=== PATIENT | female | born 1995 | race Hispanic/Latino ===

== ENCOUNTER 2024-03-31 04:32 | Emergency (ER) | payer SELFPAY ==
--- OUTSIDE RECORDS SUMMARY | 2024-03-31 04:37 | XMS REPORT | Continuity of Care Document ---
Author Name Unknown Address [address] [facility] [address] [place] [id number] [facility] [address] [facility] [address] [place] [address] Care Team Providers Care Education Sales Consultant Name Role Phone Pcp, Patient Does Not Have A Primary Care Physic tylor JOSELINE BATISTA Attending Clinician BHAVYA Ying Attending Clinician Unavail able Bhavya Rizo Attending Clinician + Ultrasound, Tsering Attending Clinician UnavailMARCE Lau Attending Clinician SO Sandoval Attending Clinician Unavailable So Sotelo MD Attending Clinician [phone] Unknown, Attending Attending Clinician Unavailab Glynn Recinos Exp Cprit Obgyn Attending [place] Unavailable Unknown, Attending Attending Clinician Unavailab ilan MIRELES, Piper Onofre Attending Clinician [phone] PIPER PARMRA Attending Clinician Unavailab ilan Doctor Unassigned, Cable Attending Clinician U Joseline Solorio CNM Attending Clinician [phone] Visit, [place] Nurse Attending Clinician Mukesh ilBhavya Pastor Attending Clinician + FRANCK CESAR Attending Clinician Lawrence Cesar MD, Franck Sorensen Attending Clinician + Zaida Romero MD Attending Clinician [phone] TREVOR WRIGHT Attending Clinician Lawrence Novak MD, Trevor Attending Clinician + Tito FERRO, Malou Attending Clinician Unavailable DESTINEE VAUGHN Attending Clinician Unavailable Roderick BETHEA, Destinee Attending Clinician [phone] Lab, [facility] Attending Clinician Unavailable Nico Torres Attending Clinician [phone] NICO GARSIA Attending Clinician Unavailable FRANCK CESAR Admitting Clinician UnaFranck Wong MD Admitting Clinician + Payers Payer Name Policy Type Policy Number Effective Date Expirati on Date Source Problems Condition Name Condition Details Condition Category Status Onset Date Resolution Date Last Treatment Date Treating Clinician Comments Source Yeast infection Yeast infection Disease Active 02-10 00:00: 00 [facility] GBS (group B streptococ cus) UTI complicati ng GBS (group B streptococ cus) UTI complicati ng Disease Active 02-10 00:00: 00 [facility] Multiparit y Multiparit y Disease Active 02-06 00:00: 00 [facility] Supervisio n of high-risk Supervisio n of high-risk Disease Active 02-06 00:00: 00 [facility] Short interval between pregnancie s affecting , antepartum Short interval between pregnancie s affecting , antepartum Disease Active 02-06 00:00: 00 [facility] History of section History of section Disease Active 02-06 00:00: 00 [facility] History of placenta abruption History of placenta abruption Disease Active 02-06 00:00: 00 Overview: Formattin g of this note might be different from the original. With preg num 1 [facility] Need for HPV vaccinatio n Need for HPV vaccinatio n Disease Active -31 00:00: 00 [facility] Declines flu vaccine Declines flu vaccine Disease Active 2022-05 1- 00:00: 00 [facility] Anemia of mother in , antepartum Anemia of mother in , antepartum Disease Active 9-27 00:00: 00 [facility] Atypical squamous cells of undetermin ed significan ce (ASCUS) on Papanicola ou smear of cervix Atypical squamous cells of undetermin ed significan ce (ASCUS) on Papanicola ou smear of cervix Disease Active 11-10 00:00: 00 Overview: Formattin g of this note might be different from the original. 3 ASCUS +HPV11/30 colposcop y, rpt 6w pp05/2023 : ASCUS with HPV+. No EN noted on colposcop y bx. Needs repeat co-testin g in 12 months (05/2024). [facility] History of classical section History of classical section Disease Active 10-27 00:00: 00 Overview: Formattin g of this note might be different from the original. See records with baby num 1 [facility] Over weight Over weight Disease Active 10-24 00:00: 00 [facility] Obesity affecting in third trimester Obesity affecting in third trimester Disease Active 10-24 00:00: 00 [facility] Obesity (BMI 30-39.9) Obesity (BMI 30-39.9) Disease Active 10-24 00:00: 00 [facility] Obesity in Obesity in Disease Active 10-24 00:00: 00 [facility] No known active problems No known active problems Disease [facility] Status post delivery Status post delivery Disease Resolve d 05-29 00:00: 00 2023-06-20 00:00:00 2023-06-20 15:59:32 [facility] Anemia, Anemia, Disease Resolve d 05-29 00:00: 00 2023-06-20 00:00:00 2023-06-20 15:56:47 [facility] Supervisio n of high-risk Supervisio n of high-risk Disease Resolve d 2023-0 6-06 00:00: 00 2023-05-31 00:00:00 2023-05-31 21:35:32 [facility] Previous section Previous section Disease Resolve d 2022- 2-11 00:00: 00 2023-05-29 00:00:00 2023-05-29 14:40:42 [facility] 36 weeks gestation of 36 weeks gestation of Disease Resolve d 2022- 2-10 00:00: 00 2023-05-29 00:00:00 2023-05-29 14:40:28 [facility] Group B Streptococ cus urinary tract infection affecting in third trimester Group B Streptococ cus urinary tract infection affecting in third trimester Disease Resolve d 2022-05 1-21 00:00: 00 2023-05-29 00:00:00 2023-05-29 14:40:26 [facility] Anemia of mother in , antepartum Anemia of mother in , antepartum Disease Resolve d 9-27 00:00: 00 2023-05-29 00:00:00 2023-05-29 14:43:39 [facility] Multiparit y Multiparit y Disease Resolve d 6-06 00:00: 00 2023-05-29 00:00:00 2023-05-29 14:40:38 [facility] History of delivery History of delivery Disease Resolve d 6-06 00:00: 00 2023-05-29 00:00:00 2023-05-29 14:40:36 Overview: Formattin g of this note might be different from the original. 27 weeks records received [facility] History of placenta abruption History of placenta abruption Disease Resolve d 6-06 00:00: 00 2023-05-29 00:00:00 2023-05-29 14:40:27 [facility] Allergies, Adverse Reactions, Alerts Allergy Name Allergy Type Status Severity Reaction(s) Onset Date Inactive Date Treating Clinician Comments Source NO KNOWN ALLERGIE S Drug Class Active [facility] Social History Social Habit Start Date Stop Date Quantity Comments Source ASSERTION 2023-12-30 00:00:00 [facility] Exposure to SARS-CoV-2 (event) Not sure [facility] Alcoholic beverage intake 2024-03-06 00:00:00 2024-03-06 00:00:00 Lifetime non-drinker (finding) [facility] History of Social function 2024-02-07 00:00:00 2024-02-07 00:00:00 [facility] Alcohol intake 2023-06-21 00:00:00 2023-06-21 00:00:00 Lifetime non-drinker (finding) [facility] Tobacco use and exposure 2022-10-24 00:00:00 2022-10-24 00:00:00 Smokeless tobacco non-user [facility] Sex assigned at 1995 00:00:00 1995 00:00:00 [facility] Smoking Status Start Date Stop Date Source Never smoked tobacco [facility] Tobacco smoking consumption unknown [facility] Medications Ordered Medication Name Filled Medication Name Start Date Stop Date Current Medication? Ordering Clinician Indication Dosage Frequency Signature (SIG) Comments Components Source ampicillin 500 mg capsule 2023-05 00:00: 00 03-21 04:59 :00 Yes [id number] 500mg Take 1 capsule by mouth 4 (four) times daily for 10 days. [facility] ampicillin 500 mg capsule 02-10 00:00: 00 02-21 04:59 :00 Yes [id number] 500mg Take 1 capsule by mouth 4 (four) times daily for 10 days. [facility] PNV 67-iron ps-folate no.1-dha (VITAFOL ULTRA) 29 mg iron- 1 mg-200 mg Cap 02-06 00:00: 00 Yes [id number] 1{each} Take 1 Each by mouth in the morning. [facility] norethindro ne 0.35 mg tablet 06-13 00:00: 00 01-13 00:00 :00 No [id number] 1{tbl} Take 1 tablet by mouth in the morning. [facility] [id number] fum-folic () 27 mg iron- 1 mg folic tablet 2022-05 00:00: 00 06-20 00:00 :00 No [id number] 1{tbl} Take 1 tablet by mouth in the morning. [facility] docusate 100 mg capsule 2022-05 00:00: 00 06-20 00:00 :00 No [id number] 200mg Take 2 capsules by mouth once daily as needed for Constipati on. [facility] ferrous sulfate 325 mg (65 mg iron) tablet 2022-05 00:00: 00 06-20 00:00 :00 No [id number] 325mg Take 1 tablet by mouth in the morning. [facility] ibuprofen 600 mg tablet 2022-05 00:00: 00 06-20 00:00 :00 No [id number] 600mg Take 1 tablet by mouth every 6 (six) hours as needed (Pain). Take with food or milk. [facility] norethindro ne 0.35 mg tablet 2022-05 00:00: 00 06-20 00:00 :00 No [id number] .35mg Take 1 tablet by mouth in the morning. [facility] HYDROcodone -acetaminop hen 5-325 mg tablet 2022-05 00:00: 00 05-13 05:59 :00 No [id number] 1{tbl} Take 1 tablet by mouth every 6 (six) hours as needed (Pain scale above 4) for up to 10 days. Do not exceed 3 grams of acetaminop hen in 24 hours. Indication s: acute pain [facility] polyethylen e glycol 3350 powder 17 g 2022-05 15:00: 00 Yes 17g 17 g, Oral, DAILY, First dose on Sun05/01/23 at 0900, Until Discontinu ed, Routine [facility] simethicone (GAS RELIEF (SIMETHICON E)) chewable tablet 160 mg 2022-05 15:00: 00 Yes 160mg 160 mg, Oral, PC+HS, First dose (after last modificati on) on Sun05/01/23 at 0900, Until Discontinu ed, Routine [facility] docusate (COLACE) capsule 200 mg 2022-05 15:00: 00 Yes 200mg 200 mg, Oral, DAILY, First dose (after last modificati on) on Sun05/01/23 at 0900, Until Discontinu ed, Routine [facility] ferrous sulfate tablet 325 mg 2022-05 15:00: 00 Yes 325mg 325 mg, Oral, DAILY, First dose on Sun05/01/23 at 0900, Until Discontinu ed, Routine [facility] human papillomav vac,9-dirk(P F) (GARDASIL-9 ) syringe 0.5 mL 2022-05 08:53: 56 Yes .5mL 0.5 mL, Intramuscu lar, ONCE-PRIOR TO DISCHARGE, 1 dose, Starting on Sun05/01/23 at 0253, Until Discontinu ed, Routine, Give vaccine prior to discharge [facility] HYDROcodone -acetaminop hen (NORCO 5) 5-325 mg tablet 2 tablet 2022-05 21:32: 30 Yes 2{tbl} 2 tablet, Oral, Q6HPRN, Starting on Sun04/30/23 at 1532, Until Discontinu ed, Routine, Pain (scale 7-10), Alternate with Ibuprofen [facility] HYDROcodone -acetaminop hen (NORCO 5) 5-325 mg tablet 1 tablet 2022-05 21:32: 30 Yes 1{tbl} 1 tablet, Oral, Q6HPRN, Starting on Sun04/30/23 at 1532, Until Discontinu ed, Routine, Pain (scale 4-6), Alternate with Ibuprofen [facility] ibuprofen (IBU) tablet 600 mg 2022-05 21:32: 30 Yes 600mg 600 mg, Oral, Q6HPRN, Starting on Sun04/30/23 at 1532, Until Discontinu ed, Routine, Pain (scale 1-3) [facility] diphenhydrA MINE (BENADRYL) injection 25 mg 2022-05 21:32: 30 Yes 25mg 25 mg, Slow IV Push, Q6HPRN, Starting on Sun04/30/23 at 1532, Until Discontinu ed, Routine, Itching [facility] diphenhydrA MINE (BENADRYL) tablet 25 mg 2022-05 21:32: 30 Yes 25mg 25 mg, Oral, Q6HPRN, Starting on Sun04/30/23 at 1532, Until Discontinu ed, Routine, Sleep, Itching [facility] ondansetron (ZOFRAN (PF)) injection 4 mg 2022-05 21:32: 30 Yes 4mg 4 mg, Slow IV Push, Q8HPRN, Starting on Sun04/30/23 at 1532, Until Discontinu ed, Routine, Nausea and Vomiting (N/V) [facility] bisacodyL (DULCOLAX) suppository 10 mg 2022-05 21:32: 30 Yes 10mg 10 mg, Rectal, QDAILYPRN, Starting on Sun04/30/23 at 1532, Until Discontinu ed, Routine, Constipati on [facility] magnesium hydroxide (MILK OF MAGNESIA) 400 mg/5 mL suspension 30 mL 2022-05 21:32: 30 Yes 30mL 30 mL, Oral, QDAILYPRN, Starting on Sun04/30/23 at 1532, Until Discontinu ed, Routine, Constipati on [facility] lactated ringers IV infusion 1,000 mL 2022-05 21:32: 30 Yes 1000mL at 125 mL/hr, 1,000 mL, IV Infusion, PRN, 1 dose, Starting on Sun04/30/23 at 1532, Until Discontinu ed, Routine [facility] simethicone (GAS RELIEF (SIMETHICON E)) chewable tablet 160 mg 2022-05 21:32: 30 05-01 14:23 :01 No 160mg 160 mg, Oral, PC+HSPRN, Starting on Sun04/30/23 at 1532, Until Sun05/01/23 at 0823, Routine, Gas [facility] docusate (COLACE) capsule 200 mg 2022-05 21:32: 30 05-01 14:23 :01 No 200mg 200 mg, Oral, QDAILYPRN, Starting on Sun04/30/23 at 1532, Until Sun05/01/23 at 0823, Routine, Constipati on [facility] ketorolac (TORADOL) injection 30 mg 2022-05 19:49: 58 05-03 05:59 :00 No 30mg 30 mg, Slow IV Push, PRN, 1 dose, Starting on Sun04/30/23 at 1349, Until Sun05/02/23 at 2359, Routine, Pain (scale 4-6) [facility] lactated ringers IV infusion 1,000 mL 2022-05 17:15: 00 05-01 15:44 :00 No 1000mL at 125 mL/hr, 1,000 mL, IV Infusion, CONTINUOUS , Starting on Sun04/30/23 at 1115, Until Sun05/01/23 at 0944, DOMENICO [facility] ibuprofen (IBU) tablet 600 mg 2022-05 17:06: 46 Yes 600mg 600 mg, Oral, Q6HPRN, Starting on Sun04/30/23 at 1106, Until Discontinu ed, Routine, Pain (scale 1-3) [facility] oxytocin (PITOCIN) 30 units in NS 500 mL IV infusion 2022-05 17:06: 29 Yes 600mL/h 600 mL/hr, IV Infusion, PRN, For post delivery uterine atony., Starting on Sun04/30/[address] at 600 mL/hr for 1 hr then 150 mL/hr for 1 hr.
[facility] oxytocin (PITOCIN) 30 units in NS 500 mL IV infusion 2022-05 17:06: 29 Yes 300mL/h 300 mL/hr, IV Infusion, SEE-INSTRU CTIONS, Starting on Sun04/30/[address] at 300 mL/hr for 1 hr then 150 mL/hr for 1 hr. For post delivery uterotonic .
[facility] acetaminoph en (TYLENOL) tablet 650 mg 2022-05 06:15: 00 04-30 16:41 :00 No 650mg 650 mg, Oral, ONCE, 1 dose, On Sun04/30/23 at 0015, Routine [facility] sodium citrate-cit ananth acid (BICITRA) 500-334 mg/5 mL solution 30 mL 2022-05 06:01: 41 04-30 16:50 :00 No 30mL 30 mL, Oral, PRE-PROCED URE ONCE, 1 dose, Starting on Sun04/30/23 at 0001, Until Sun05/02/23 at 2359, Routine, Surgery/Pr ocedure [facility] ferrous sulfate 325 mg (65 mg iron) tablet 02-14 00:00: 00 05-02 00:00 :00 No [id number] 325mg Take 1 tablet by mouth in the morning and 1 tablet in the evening. [facility] ascorbic acid, vitamin C, 500 mg tablet 02-14 00:00: 00 05-02 00:00 :00 No [id number] 500mg Take 1 tablet by mouth in the morning and 1 tablet at noon and 1 tablet in the evening. [facility] ampicillin 500 mg capsule 10-27 00:00: 00 11-07 04:59 :00 No [id number] 500mg Take 1 capsule by mouth 4 (four) times daily for 10 days. [facility] PNV 67-iron ps-folate no.1-dha (VITAFOL ULTRA) 29 mg iron- 1 mg-200 mg Cap 10-24 00:00: 00 Yes [id number] 1{each} Take 1 Each by mouth in the morning. [facility] proMETHazin e 25 mg tablet 10-24 00:00: 00 05-02 00:00 :00 No [id number] 25mg Take 1 tablet by mouth every 6 (six) hours as needed for Nausea and Vomiting (N/V). [facility] PNV 67-iron ps-folate no.1-dha (VITAFOL ULTRA) 29 mg iron- 1 mg-200 mg Cap 6-06 00:00: 00 05-02 00:00 :00 No [id number] 1{each} Take 1 Each by mouth in the morning. [facility] No known medications No Un stephanie [facility] Immunizations Ordered Immunization Name Filled Immunization Name Date Status Comments Source HPV9 2023-12-12 00:00:00 Completed HPV9 2023-06-20 00:00:00 Completed TDAP 2023-02-27 00:00:00 Completed [facility] TDAP Unknown Completed [facility] HPV9 Unknown Completed [facility] TDAP Unknown Completed [facility] HPV9 Unknown Completed [facility] TDAP Unknown Completed [facility] HPV9 Unknown Completed [facility] TDAP Unknown Completed [facility] HPV9 Unknown Completed [facility] TDAP Unknown Completed [facility] TDAP Unknown Completed [facility] TDAP Unknown Completed [facility] TDAP Unknown Completed [facility] TDAP Unknown Completed [facility] TDAP Unknown Completed [facility] TDAP Unknown Completed [facility] TDAP Unknown Completed [facility] TDAP Unknown Completed [facility] TDAP Unknown Completed [facility] TDAP Unknown Completed [facility] TDAP Unknown Completed [facility] HPV9 Unknown Completed [facility] TDAP Unknown Completed [facility] HPV9 Unknown Completed [facility] TDAP Unknown Completed [facility] HPV9 Unknown Completed [facility] TDAP Unknown Completed [facility] HPV9 Unknown Completed [facility] TDAP Unknown Completed [facility] HPV9 Unknown Completed [facility] TDAP Unknown Completed [facility] HPV9 Unknown Completed [facility] TDAP Unknown Completed [facility] HPV9 Unknown Completed [facility] Vital Signs Vital Name Observation Time Observation Value Comments S ource Systolic blood pressure 2024-03-06 14:17:00 106 mm[Hg] [facility] Diastolic blood pressure 2024-03-06 14:17:00 56 mm[Hg] [facility] Heart rate 2024-03-06 14:17:00 70 /min Un[facility] Body temperature 2024-03-06 14:17:00 36.67 Natalie [facility] Respiratory rate 2024-03-06 14:17:00 18 /min [facility] Body height 2024-03-06 14:17:00 139.7 cm [facility] Body weight 2024-03-06 14:17:00 59.535 kg [facility] BMI 2024-03-06 14:17:00 30.51 kg/m2 [facility] Systolic blood pressure 2024-02-07 14:16:00 92 mm[Hg] [facility] Diastolic blood pressure 2024-02-07 14:16:00 54 mm[Hg] [facility] Heart rate 2024-02-07 14:16:00 76 /min Un[facility] Body temperature 2024-02-07 14:16:00 36.67 Natalie [facility] Respiratory rate 2024-02-07 14:16:00 18 /min [facility] Body height 2024-02-07 14:16:00 139.7 cm [facility] Body weight 2024-02-07 14:16:00 60.918 kg [facility] BMI 2024-02-07 14:16:00 31.21 kg/m2 [facility] Systolic blood pressure 2024-01-14 16:11:00 104 mm[Hg] [facility] Diastolic blood pressure 2024-01-14 16:11:00 69 mm[Hg] [facility] Heart rate 2024-01-14 16:11:00 62 /min Un[facility] Body temperature 2024-01-14 16:11:00 37.22 Natalie [facility] Respiratory rate 2024-01-14 16:11:00 18 /min [facility] Body weight 2024-01-14 16:11:00 60.601 kg [facility] BMI 2024-01-14 16:11:00 31.05 kg/m2 [facility] Oxygen saturation in Arterial blood by Pulse oximetry 2024-01-14 16:11:00 98 /min [facility] Body temperature 2023-12-12 19:02:00 36.89 Natalie [facility] Systolic blood pressure 2023-06-21 22:19:00 108 mm[Hg] [facility] Diastolic blood pressure 2023-06-21 22:19:00 50 mm[Hg] [facility] Heart rate 2023-06-21 22:19:00 64 /min [facility] Body temperature 2023-06-21 22:19:00 36 Natalie [facility] Respiratory rate 2023-06-21 22:19:00 17 /min [facility] Body height 2023-06-21 22:19:00 139.7 cm [facility] Body weight 2023-06-21 22:19:00 65.908 kg [facility] BMI 2023-06-21 22:19:00 33.77 kg/m2 [facility] Systolic blood pressure 2023-06-20 21:34:00 90 mm[Hg] [facility] Diastolic blood pressure 2023-06-20 21:34:00 58 mm[Hg] [facility] Heart rate 2023-06-20 21:34:00 67 /min [facility] Body temperature 2023-06-20 21:34:00 36.28 Natalie [facility] Respiratory rate 2023-06-20 21:34:00 16 /min [facility] Body height 2023-06-20 21:34:00 139.7 cm [facility] Body weight 2023-06-20 21:34:00 65.726 kg [facility] BMI 2023-06-20 21:34:00 33.68 kg/m2 [facility] Systolic blood pressure 2023-05-29 20:20:00 76 mm[Hg] [facility] Diastolic blood pressure 2023-05-29 20:20:00 46 mm[Hg] [facility] Heart rate 2023-05-29 20:20:00 68 /min Un[facility] Body temperature 2023-05-29 20:20:00 36.22 Natalie [facility] Respiratory rate 2023-05-29 20:20:00 17 /min [facility] Body height 2023-05-29 20:20:00 139.7 cm [facility] Body weight 2023-05-29 20:20:00 65.862 kg [facility] BMI 2023-05-29 20:20:00 33.75 kg/m2 [facility] Systolic blood pressure 2023-05-07 21:07:00 110 mm[Hg] [facility] Diastolic blood pressure 2023-05-07 21:07:00 50 mm[Hg] [facility] Heart rate 2023-05-07 21:07:00 67 /min Un[facility] Body temperature 2023-05-07 21:07:00 36.39 Natalie [facility] Respiratory rate 2023-05-07 21:07:00 18 /min [facility] Body height 2023-05-07 21:07:00 139.7 cm [facility] Body weight 2023-05-07 21:07:00 69.128 kg [facility] BMI 2023-05-07 21:07:00 35.42 kg/m2 [facility] Systolic blood pressure 2023-05-02 14:43:00 99 mm[Hg] [facility] Diastolic blood pressure 2023-05-02 14:43:00 58 mm[Hg] [facility] Heart rate 2023-05-02 14:43:00 77 /min Unive [facility] Body temperature 2023-05-02 14:43:00 36.67 Natalie [facility] Respiratory rate 2023-05-02 14:43:00 17 /min [facility] Oxygen saturation in Arterial blood by Pulse oximetry 2023-05-02 14:43:00 99 /min [facility] Body height 2023-04-30 05:30:00 139.7 cm [facility] Body weight 2023-04-30 05:30:00 76.567 kg [facility] BMI 2023-04-30 05:30:00 39.23 kg/m2 [facility] Systolic blood pressure 2023-04-30 14:53:00 98 mm[Hg] [facility] Diastolic blood pressure 2023-04-30 14:53:00 53 mm[Hg] [facility] Heart rate 2023-04-30 14:53:00 89 /min [facility] Oxygen saturation in Arterial blood by Pulse oximetry 2023-04-30 14:53:00 99 /min [facility] Respiratory rate 2023-04-30 14:00:00 18 /min [facility] Body temperature 2023-04-30 12:35:00 36.61 Natalie [facility] Body height 2023-04-30 05:30:00 139.7 cm [facility] Body weight 2023-04-30 05:30:00 76.567 kg [facility] BMI 2023-04-30 05:30:00 39.23 kg/m2 [facility] Systolic blood pressure 2023-04-17 14:52:00 97 mm[Hg] [facility] Diastolic blood pressure 2023-04-17 14:52:00 47 mm[Hg] [facility] Heart rate 2023-04-17 14:52:00 80 /min Unive [facility] Body temperature 2023-04-17 14:52:00 36.39 Natalie [facility] Respiratory rate 2023-04-17 14:52:00 18 /min [facility] Body height 2023-04-17 14:52:00 139.7 cm Univ [facility] Body weight 2023-04-17 14:52:00 75.524 kg [facility] BMI 2023-04-17 14:52:00 38.70 kg/m2 [facility] Systolic blood pressure 2023-04-10 13:47:00 95 mm[Hg] [facility] Diastolic blood pressure 2023-04-10 13:47:00 54 mm[Hg] [facility] Heart rate 2023-04-10 13:47:00 86 /[facility] 2023-04-10 13:47:00 36.22 Natalie [facility] Respiratory rate 2023-04-10 13:47:00 18 /min [facility] Body height 2023-04-10 13:47:00 139.7 cm [facility] 2023-04-10 13:47:00 72.938 kg [facility] BMI 2023-04-10 13:47:00 37.37 kg/m2 [facility] Systolic blood pressure 2023-03-28 14:01:00 94 mm[Hg] [facility] Diastolic blood pressure 2023-03-28 14:01:00 50 mm[Hg] [facility] Heart rate 2023-03-28 14:01:00 89 /min [facility] Body temperature 2023-03-28 14:01:00 36.5 Natalie [facility] Respiratory rate 2023-03-28 14:01:00 18 /min [facility] Body height 2023-03-28 14:01:00 139.7 cm [facility] 2023-03-28 14:01:00 71.016 kg [facility] BMI 2023-03-28 14:01:00 36.39 kg/m2 [facility] Systolic blood pressure 2023-03-14 13:16:00 103 mm[Hg] [facility] Diastolic blood pressure 2023-03-14 13:16:00 64 mm[Hg] [facility] Heart rate 2023-03-14 13:16:00 82 /min [facility] Body temperature 2023-03-14 13:16:00 36.33 Natalie [facility] Respiratory rate 2023-03-14 13:16:00 18 /min [facility] Body height 2023-03-14 13:16:00 139.7 cm [facility] 2023-03-14 13:16:00 69.31 kg [facility] BMI 2023-03-14 13:16:00 35.51 kg/m2 [facility] Systolic blood pressure 2023-02-27 13:15:00 95 mm[Hg] [facility] Diastolic blood pressure 2023-02-27 13:15:00 42 mm[Hg] [facility] Heart rate 2023-02-27 13:15:00 75 /min [facility] Body temperature 2023-02-27 13:15:00 36.94 Natalie [facility] Respiratory rate 2023-02-27 13:15:00 16 /min [facility] Body height 2023-02-27 13:15:00 139.7 cm [facility] Body weight 2023-02-27 13:15:00 68.992 kg [facility] BMI 2023-02-27 13:15:00 35.35 kg/m2 [facility] Systolic blood pressure 2023-02-13 13:48:00 90 mm[Hg] Manual BP [facility] Diastolic blood pressure 2023-02-13 13:48:00 40 mm[Hg] Manual BP [facility] Heart rate 2023-02-13 13:24:00 68 /min [facility] Body temperature 2023-02-13 13:24:00 36.56 Natalie [facility] Respiratory rate 2023-02-13 13:24:00 18 /min [facility] Body height 2023-02-13 13:24:00 139.7 cm [facility] Body weight 2023-02-13 13:24:00 65.862 kg [facility] BMI 2023-02-13 13:24:00 33.75 kg/m2 [facility] Systolic blood pressure 2023-01-21 01:07:00 100 mm[Hg] [facility] Diastolic blood pressure 2023-01-21 01:07:00 47 mm[Hg] [facility] Heart rate 2023-01-21 01:07:00 79 /min [facility] Body temperature 2023-01-21 01:07:00 37.61 Natalie [facility] Respiratory rate 2023-01-21 01:07:00 18 /min [facility] Body height 2023-01-21 01:07:00 139.7 cm [facility] Body weight 2023-01-21 01:07:00 64.275 kg [facility] BMI 2023-01-21 01:07:00 32.93 kg/m2 [facility] Oxygen saturation in Arterial blood by Pulse oximetry 2023-01-21 01:07:00 100 /min [facility] Systolic blood pressure 2023-01-16 13:09:00 102 mm[Hg] [facility] Diastolic blood pressure 2023-01-16 13:09:00 51 mm[Hg] [facility] Heart rate 2023-01-16 13:09:00 68 /min [facility] Body temperature 2023-01-16 13:09:00 36 Natalie [facility] Respiratory rate 2023-01-16 13:09:00 18 /min [facility] Body height 2023-01-16 13:09:00 139.7 cm [facility] Body weight 2023-01-16 13:09:00 61.598 kg [facility] BMI 2023-01-16 13:09:00 31.56 kg/m2 [facility] Systolic blood pressure 2022-12-15 15:51:00 112 mm[Hg] [facility] Diastolic blood pressure 2022-12-15 15:51:00 57 mm[Hg] [facility] Heart rate 2022-12-15 15:51:00 72 /min [facility] Body temperature 2022-12-15 15:51:00 36 Natalie [facility] Respiratory rate 2022-12-15 15:51:00 18 /min [facility] Body height 2022-12-15 15:51:00 139.7 cm [facility] Body weight 2022-12-15 15:51:00 57.063 kg [facility] BMI 2022-12-15 15:51:00 29.24 kg/m2 [facility] Systolic blood pressure 2022-11-30 16:29:00 109 mm[Hg] [facility] Diastolic blood pressure 2022-11-30 16:29:00 59 mm[Hg] [facility] Heart rate 2022-11-30 16:29:00 84 /min [facility] Body temperature 2022-11-30 16:29:00 36.5 Natalie [facility] Respiratory rate 2022-11-30 16:29:00 18 /min [facility] Body height 2022-11-30 16:29:00 139.7 cm [facility] Body weight 2022-11-30 16:29:00 56.501 kg [facility] BMI 2022-11-30 16:29:00 28.95 kg/m2 [facility] Systolic blood pressure 2022-11-17 17:52:00 100 mm[Hg] [facility] Diastolic blood pressure 2022-11-17 17:52:00 49 mm[Hg] [facility] Heart rate 2022-11-17 17:52:00 71 /min [facility] Body temperature 2022-11-17 17:52:00 36.72 Natalie [facility] Respiratory rate 2022-11-17 17:52:00 18 /min [facility] Body height 2022-11-17 17:52:00 139.7 cm [facility] Body weight 2022-11-17 17:52:00 56.382 kg [facility] BMI 2022-11-17 17:52:00 28.89 kg/m2 [facility] Systolic blood pressure 2022-10-24 18:43:00 93 mm[Hg] [facility] Diastolic blood pressure 2022-10-24 18:43:00 55 mm[Hg] [facility] Heart rate 2022-10-24 18:43:00 60 /min [facility] Body temperature 2022-10-24 18:43:00 36.28 Natalie [facility] Respiratory rate 2022-10-24 18:43:00 16 /min [facility] Body height 2022-10-24 18:43:00 139.7 cm [facility] Body weight 2022-10-24 18:43:00 56.564 kg [facility] BMI 2022-10-24 18:43:00 28.98 kg/m2 [facility] Body temperature 2020-05-25 18:29:00 36.56 Natalie [facility] Respiratory rate 2020-05-25 18:29:00 16 /min [facility] Body weight 2020-05-25 18:29:00 72.576 kg [facility] Oxygen saturation in Arterial blood by Pulse oximetry 2020-05-25 18:29:00 98 /min [facility] Systolic blood pressure 2020-05-25 18:29:00 110 mm[Hg] [facility] Diastolic blood pressure 2020-05-25 18:29:00 60 mm[Hg] [facility] Heart rate 2020-05-25 18:29:00 77 /min [facility] Procedures Procedure Date / Time Performed Performing Clinician Source POCT URINALYSIS 2024-03-06 14:18:00 Bhavya Santos [facility] SECOND AND THIRD TRIMESTER ULTRASOUND 2024-02-07 20:29:00 Bhavya Santos [facility] POCT TEST 2024-02-07 14:20:00 Hector Santos [facility] POCT URINALYSIS W/O SPECIFIC GRAVITY 2024-02-07 14:20:00 Bhavya Santos [facility] POCT TEST 2024-01-14 16:10:00 [facility] (HPV 9V) VACCINE 2023-12-12 19:01:20 Bhavya Santos [facility] POCT TEST 2023-06-21 22:20:00 Rashida Parmar [facility] DISCLOSURE AND CONSENT, MEDICAL AND SURGICAL PROCEDURES 2023-06-21 06:01:00 Doctor Unassigned, Cable [facility] GARDASIL 9 (HPV 9V) VACCINE 2023-06-20 21:49:14 Bhavya Santos [facility] CBC WITH DIFF 2023-05-01 10:38:00 Julia Montanez [facility] CBC WITH DIFF 2023-05-01 10:38:00 Julia Montanez [facility] VENOUS CORD GAS 2023-04-30 18:16:00 Sorathia [facility] VENOUS CORD GAS 2023-04-30 18:16:00 Sorathia [facility] SECTION 2023-04-30 16:54:00 Zaida Romero [facility] RESPIRATORY PANEL BY PCR 2023-04-30 15:48:00 Ruth Montanez [facility] RESPIRATORY PANEL BY PCR 2023-04-30 15:48:00 [facility] COVID-19 (ID NOW RAPID TESTING) 2023-04-30 13:59:00 Lisseth Julia [facility] LAB ONLY COVID INTERPRETATION 2023-04-30 13:59:00 Lisseth [facility] COVID-19 (ID NOW RAPID TESTING) 2023-04-30 13:59:00 Lisseth Julia [facility] LAB ONLY COVID INTERPRETATION 2023-04-30 13:59:00 Lisseth Julia [facility] CBC WITH DIFF 2023-04-30 06:54:00 [facility] ANTIGEN 2023-04-30 06:54:00 Celio [facility] HCV ANTIBODY 2023-04-30 06:54:00 Susan Bojorquez [facility] HBC ANTIBODY (IGM & IGG) 2023-04-30 06:54:00 Susan Bojorquez [facility] HB ABO GROUPING 2023-04-30 06:54:00 Celio [facility] HIV 1/2 AG-AB WITH REFLEX 2023-04-30 06:54:00 Hakanathfloresita [facility] SYPHILIS IGG/IGM 2023-04-30 06:54:00 Sorathia, [facility] CBC WITH DIFF 2023-04-30 06:54:00 [facility] HEPATITIS [facility] SURFACE ANTIGEN 2023-04-30 06:54:00 Celio [facility] HCV ANTIBODY 2023-04-30 06:54:00 Susan Bojorquez [facility] HBC ANTIBODY (IGM & IGG) 2023-04-30 06:54:00 Susan Bojorquez [facility] HB ABO GROUPING 2023-04-30 06:54:00 Celio [facility] HIV 1/2 AG-AB WITH REFLEX 2023-04-30 06:54:00 Celio [facility] SYPHILIS IGG/IGM 2023-04-30 06:54:00 Celio [facility] POCT URINALYSIS 2023-04-17 14:54:00 Bhavya Santos [facility] POCT URINALYSIS 2023-04-10 13:49:00 Bhavya Santos [facility] SECOND AND THIRD TRIMESTER ULTRASOUND 2023-04-03 15:09:00 Bhavya Santos [facility] POCT URINALYSIS 2023-03-14 13:18:00 Bhavya Santos [facility] TDAP VACCINE, >11 YRS, IM 2023-02-27 13:24:04 Bhavya Santos [facility] POCT URINALYSIS 2023-02-27 00:00:00 Bhavya Santos [facility] GLUCOSE 1 HOUR POST PRANDIAL 2023-02-13 14:22:00 Bhavya Santos [facility] CBC WITH DIFF 2023-02-13 14:22:00 Bhavya Santos [facility] POCT URINALYSIS 2023-02-13 13:25:00 Bhavya Santos [facility] ASSIGNMENT OF BENEFITS 2023-01-21 01:34:13 Docto r Unassigned, Cable [facility] COVID-19 (ID NOW RAPID TESTING) 2023-01-21 01:24:00 Destinee Vaughn [facility] CONSENT/REFUSAL FOR DIAGNOSIS AND TREATMENT 2023-01-21 00:56:56 Doctor Unassigned, Cable [facility] POCT URINALYSIS 2023-01-16 13:13:00 Bhavya Santos [facility] SECOND AND THIRD TRIMESTER ULTRASOUND 2023-01-02 19:52:00 Bhavya Santos [facility] SECOND AND THIRD TRIMESTER ULTRASOUND 2022-12-15 15:52:00 Bhavya Santos [facility] DISCLOSURE AND CONSENT, MEDICAL AND SURGICAL PROCEDURES 2022-11-30 05:01:00 Doctor Unassigned, Cable [facility] POCT URINALYSIS 2022-11-17 17:53:00 Bhavya Santos [facility] POCT URINALYSIS W/O SPECIFIC GRAVITY 2022-10-24 21:13:00 Bhavya Santos [facility] POCT TEST 2022-10-24 21:12:00 Hector Santos [facility] CBC WITH DIFF 2022-10-24 19:59:00 Bhavya Santos [facility] HEPATITIS B SURFACE ANTIGEN 2022-10-24 19:59:00 Bhavya Santos [facility] HB ABO GROUPING 2022-10-24 19:59:00 Bhavya Santos [facility] HIV 1/2 AG-AB WITH REFLEX 2022-10-24 19:59:00 Bhavya Santos [facility] PAP SMEAR-LIQUID BASED-CP 2022-10-24 19:59:00 Bhavya Santos [facility] SYPHILIS IGG/IGM 2022-10-24 19:59:00 Jm Santos [facility] CONSENT/REFUSAL FOR DIAGNOSIS AND TREATMENT 2022-10-24 18:06:10 Doctor Unassigned, Cable [facility] ASSIGNMENT OF BENEFITS 2022-10-24 18:05:52 Docto r Unassigned, Cable [facility] Encounters Start Date/Time End Date/Time Encounter Type Admission Type Attending Clinicians Care Facility Care Department Encounter ID Source 2024-03-10 00:00:00 2024-03-11 08:08:52 Telephone Bhavya Santos DIRECTOR OF COUNSELING [facility] & CHILD [facility] 1.2.840.114 350.1.13.10 4.2.7.2.686 [id number] [facility] 2024-03-06 09:15:00 2024-03-06 11:23:45 Outpatient R BHAVYA SANTOS [facility] [id number] [facility] 2024-03-06 09:15:00 2024-03-06 11:23:45 Routine Visit Bhavya Santos DIRECTOR OF COUNSELING [facility] CHILD [facility] 1.2840.114 350.1.13.10 4.2.7.2.686 [id number] [facility] 2024-02-12 00:00:00 2024-02-12 08:16:03 Abstract Bhavya Santos [facility] DIRECTOR OF COUNSELING [facility] 1.2.840.114 350.1.13.10 4.2.7.2.686 [id number] [facility] 2024-02-11 00:00:00 2024-02-11 10:47:03 Telephone Bhavya Santos NCLOIVIA DIRECTOR OF COUNSELING [facility] 1.2.840.114 350.1.13.10 4.2.7.2.686 [id number] [facility] 2024-02-07 15:00:00 2024-02-07 16:10:29 Hotel Concierge Visit Ultrasound, Glynn-Bhavya Oleary [facility] DIRECTOR OF COUNSELING [facility] & CHILD [facility] 1.2.840.114 350.1.13.10 4.2.7.2.686 [id number] [facility] 2024-02-07 09:00:00 2024-02-07 11:11:02 Outpatient R BHAVYA SANTOS [facility] [id number] [facility] 2024-02-07 09:00:00 2024-02-07 11:11:02 Initial Visit Bhavya Santos [facility] DIRECTOR OF COUNSELING [facility] & CHILD [facility] ..840.114 350.1.13.10 4.2.7.2.686 [id number] [facility] 2024-01-28 10:00:00 2024-01-28 10:00:00 Outpatient R MARCE RODAS [facility] [id number] [facility] 2024-01-14 10:20:00 2024-01-14 11:21:17 Outpatient R SO SOTELO [facility] [id number] [facility] 2024-01-14 10:20:00 2024-01-14 11:21:17 Urgent Care So Sotelo Unknown, Attending [facility] 1.840.114 350.1.13.10 4.2.7.2.686 [id number] [facility] 2023-12-12 14:00:00 2023-12-12 14:15:00 Nurse Visit Nurse, Glynn Rmchp Exp Cprit Obgyn Unknown, Attending [facility] DIRECTOR OF COUNSELING [facility] & CHILD [facility] ..840.114 350.1.13.10 4.2.7.2.686 [id number] [facility] 2023-12-12 14:00:00 2023-12-12 14:11:48 Outpatient R BHAVYA SANTOS [facility] [id number] [facility] 2023-09-18 13:15:00 2023-09-18 13:15:00 Outpatient R [facility] [id number] [facility] 2023-09-11 13:30:00 2023-09-11 13:30:00 Outpatient R JOSELINE BATISTA [facility] [id number] [facility] 2023-08-24 11:00:00 2023-08-24 11:00:00 Outpatient R BHAVYA SANTOS [facility] [id number] [facility] 2023-08-22 13:30:00 2023-08-22 13:30:00 Outpatient R JOSELINE BATISTA [facility] [id number] [facility] 2023-07-27 08:30:00 2023-07-27 08:30:00 Outpatient R [facility] [id number] [facility] 2023-07-23 08:30:00 2023-07-23 08:30:00 Outpatient R JOSELINE BATISTA [facility] [id number] [facility] 2023-07-09 00:00:00 2023-07-09 00:00:00 Telephone Piper Parmar [facility] DIRECTOR OF COUNSELING [facility] [place] [facility] 1..840.114 350.1.13.10 4.2.7.2.686 [id number] [facility] 2023-07-05 00:00:00 2023-07-05 00:00:00 Telephone Piper Parmar [facility] DIRECTOR OF COUNSELING [facility] & CHILD [facility] ..840.114 350.1.13.10 4.2.7.2.686 [id number] [facility] 2023-06-21 16:00:00 2023-06-21 17:49:27 Outpatient R PIPER PARMAR [facility] [id number] [facility] 2023-06-21 16:00:00 2023-06-21 16:45:00 Office Visit Piper Parmar [facility] DIRECTOR OF COUNSELING [facility] & CHILD [facility] 1..840.114 350.1.13.10 4.2.7.2.686 [id number] [facility] 2023-06-21 00:00:00 2023-06-21 00:00:00 Orders Only Doctor Unassigned, Cable [facility] 1..114 350.1.13.10 4.2.7.2.686 [id number] [facility] 2023-06-20 15:30:00 2023-06-20 16:00:20 Outpatient R JOSELINE BATISTA [facility] [id number] [facility] 2023-06-20 15:30:00 2023-06-20 16:00:20 Office Visit Joseline Batista [facility] DIRECTOR OF COUNSELING [facility] & CHILD [facility] 1..114 350.1.13.10 4.2.7.2.686 [id number] [facility] 2023-06-20 14:15:00 2023-06-20 14:15:00 [id number] 2023-05-29 14:15:00 2023-05-29 14:57:26 Outpatient R JOSELINE BATISTA [facility] [id number] [facility] 2023-05-29 14:15:00 2023-05-29 14:57:26 Routine Visit Joseline Batista [facility] DIRECTOR OF COUNSELING [facility] & CHILD [facility] ..114 350.1.13.10 4.2.7.2.686 [id number] [facility] 2023-05-07 15:00:00 2023-05-07 15:20:27 Nurse Visit Visit, Glynn-Rmchp Nurse Bhavya Santos [facility] DIRECTOR OF COUNSELING [facility] & CHILD [facility] 1.840.114 350.1.13.10 4.2.7.2.686 [id number] [facility] 2023-05-07 15:00:00 2023-05-07 15:20:27 Outpatient R BHAVYA SANTOS [facility] [id number] [facility] 2023-04-29 23:13:00 2023-05-02 15:35:00 Inpatient P FRANCK CESAR [facility] JULIANNE [id number] [facility] 2023-04-29 23:13:00 2023-05-02 15:35:00 Hospital Encounter Franck Cesar Ikuvbarry [facility] 1.840.114 350.1.13.10 4.2.7.2.686 [id number] [facility] 2023-04-30 07:30:00 2023-04-30 09:16:00 Surgery Zaida Romero [facility] 1.840.114 350.1.13.10 4.2.7.2.686 [id number] [facility] 2023-04-17 08:45:00 2023-04-17 09:57:52 Outpatient R BHAVYA SANTOS [facility] [id number] [facility] 2023-04-17 08:45:00 2023-04-17 09:57:52 Routine Visit Bhavya Santos [facility] DIRECTOR OF COUNSELING [facility] [place] [facility] 1.840.114 350.1.13.10 4.2.7.2.686 [id number] [facility] 2023-04-10 07:45:00 2023-04-10 08:15:23 Outpatient R JOSELINE BATISTA [facility] [id number] [facility] 2023-04-10 07:45:00 2023-04-10 08:15:23 Routine Visit Joseline Batista [facility] DIRECTOR OF COUNSELING [facility] [place] [facility] 1.840.114 350.1.13.10 4.2.7.2.686 [id number] [facility] 2023-04-04 00:00:00 2023-04-04 00:00:00 Abstract Bhavya Santos [facility] DIRECTOR OF COUNSELING [facility] & CHILD [facility] 1..840.114 350.1.13.10 4.2.7.2.686 [id number] [facility] 2023-04-03 08:30:00 2023-04-03 10:10:25 Outpatient P TREVOR JOHNSTON [facility] [id number] [facility] 2023-04-03 08:30:00 2023-04-03 10:10:25 Hotel Concierge Visit Ultrasound, [facility] Trevor Johnston [facility] DIRECTOR OF COUNSELING [facility] & CHILD [facility] 1.840.114 350.1.13.10 4.2.7.2.686 [id number] [facility] 2023-03-28 07:45:00 2023-03-28 08:28:30 Outpatient R BHAVYA SANTOS [facility] [id number] [facility] 2023-03-28 07:45:00 2023-03-28 08:28:30 Routine Visit Bhavya Santos [facility] DIRECTOR OF COUNSELING [facility] & CHILD [facility] .840.114 350.1.13.10 4.2.7.2.686 [id number] [facility] 2023-03-14 08:00:00 2023-03-14 08:43:35 Outpatient R BHAVYA SANTOS [facility] [id number] [facility] 2023-03-14 08:00:00 2023-03-14 08:43:35 Routine Visit Bhavya Santos [facility] DIRECTOR OF COUNSELING [facility] & CHILD [facility] 1..840.114 350.1.13.10 4.2.7.2.686 [id number] [facility] 2023-02-27 08:00:00 2023-02-27 08:34:38 Routine Visit Bhavya Santos [facility] DIRECTOR OF COUNSELING [facility] & CHILD [facility] 1.2840.114 350.1.13.10 4.2.7.2.686 [id number] [facility] 2023-02-27 08:00:00 2023-02-27 08:34:38 Outpatient R BHAVYA SANTOS [facility] [id number] [facility] 2023-02-14 00:00:00 2023-02-14 00:00:00 Telephone Bhavya Santos [facility] DIRECTOR OF COUNSELING [facility] & CHILD [facility] 1.2840.114 350.1.13.10 4.2.7.2.686 [id number] [facility] 2023-02-13 07:45:00 2023-02-13 09:04:05 Outpatient R BHAVYA SANTOS [facility] [id number] [facility] 2023-02-13 07:45:00 2023-02-13 09:04:05 Routine Visit Bhavya Santos [facility] DIRECTOR OF COUNSELING [facility] & CHILD [facility] 1.20.114 350.1.13.10 4.2.7.2.686 [id number] [facility] 2023-01-21 00:00:00 2023-01-21 00:00:00 Letter (Out) Malou Francis [facility] 1.2.114 350.1.13.10 4.2.7.2.686 [id number] [facility] 2023-01-20 20:08:00 2023-01-20 21:36:00 Emergency X DESTINEE VAUGHN [facility] ERT [id number] [facility] 2023-01-20 20:08:00 2023-01-20 21:36:00 Emergency Destinee Vaughn [facility] 1.2840.114 350.1.13.10 4.2.7.2.686 [id number] [facility] 2023-01-16 08:00:00 2023-01-16 08:27:09 Outpatient R BHAVYA SANTOS [facility] [id number] [facility] 2023-01-16 08:00:00 2023-01-16 08:27:09 Routine Visit Bhavya Santos [facility] DIRECTOR OF COUNSELING [facility] MATERNAL & CHILD [facility] 1.2840.114 350.1.13.10 4.2.7.2.686 [id number] [facility] 2023-01-04 00:00:00 2023-01-04 00:00:00 Abstract Bhavya Santos [facility] DIRECTOR OF COUNSELING [facility] MATERNAL & CHILD [facility] 1.2840.114 350.1.13.10 4.2.7.2.686 [id number] [facility] 2023-01-02 14:00:00 2023-01-02 14:50:49 Outpatient P TREVOR JOHNSTON [facility] [id number] [facility] 2023-01-02 14:00:00 2023-01-02 14:50:49 Hotel Concierge Visit Ultrasound, Ang-[facility] Trevor Johnston [facility] DIRECTOR OF COUNSELING [facility] MATERNAL & CHILD [facility] 1.2840.114 350.1.13.10 4.2.7.2.686 [id number] [facility] 2022-12-28 00:00:00 2022-12-28 00:00:00 Abstract Bhavya Santos [facility] DIRECTOR OF COUNSELING [facility] & CHILD [facility] 1.2.840.114 350.1.13.10 4.2.7.2.686 [id number] [facility] 2022-12-15 12:45:00 2022-12-15 12:45:00 Routine Visit Bhavya Santos [facility] DIRECTOR OF COUNSELING [facility] MATERNAL & CHILD [facility] 1.2.840.114 350.1.13.10 4.2.7.2.686 [id number] [facility] 2022-12-15 10:15:00 2022-12-15 10:44:52 Outpatient P BHAVYA SANTOS [facility] [id number] [facility] 2022-12-15 10:15:00 2022-12-15 10:44:52 Hotel Concierge Visit Ultrasound, [facility] Bhavya Santos [facility] DIRECTOR OF COUNSELING [facility] & CHILD [facility] 1.2.840.114 350.1.13.10 4.2.7.2.686 [id number] [facility] 2022-12-15 00:00:00 2022-12-15 00:00:00 Abstract Bhavya Santos [facility] DIRECTOR OF COUNSELING [facility] CHILD [facility] 1.2.840.114 350.1.13.10 4.2.7.2.686 [id number] [facility] 2022-12-15 00:00:00 2022-12-15 00:00:00 Telephone Bhavya Santos [facility] DIRECTOR OF COUNSELING [facility] & CHILD [facility] 1.2.840.114 350.1.13.10 4.2.7.2.686 [id number] [facility] 2022-11-30 10:30:00 2022-11-30 11:15:00 Office Visit Piper Parmar [facility] DIRECTOR OF COUNSELING [facility] MATERNAL & CHILD [facility] 1.2.840.114 350.1.13.10 4.2.7.2.686 [id number] [facility] 2022-11-30 10:30:00 2022-11-30 10:30:00 Outpatient R PIPER PARMAR [facility] [id number] [facility] 2022-11-30 00:00:00 2022-11-30 00:00:00 Orders Only Doctor Unassigned, Cable [facility] 1.2.840.114 350.1.13.10 4.2.7.2.686 [id number] [facility] 2022-11-20 00:00:00 2022-11-20 00:00:00 Abstract Bhavya Santos [facility] DIRECTOR OF COUNSELING [facility] & CHILD [facility] 1.2.840.114 350.1.13.10 4.2.7.2.686 [id number] [facility] 2022-11-17 12:45:00 2022-11-17 13:21:21 Routine Visit Bhavya Santos [facility] DIRECTOR OF COUNSELING [facility] & CHILD [facility] 1.2840.114 350.1.13.10 4.2.7.2.686 [id number] [facility] 2022-11-17 12:45:00 2022-11-17 13:21:21 Outpatient R BHAVYA SANTOS [facility] [id number] [facility] 2022-11-15 10:15:00 2022-11-15 10:15:00 Outpatient P [facility] [id number] [facility] 2022-11-14 00:00:00 2022-11-14 00:00:00 Telephone Bhavya Santos [facility] DIRECTOR OF COUNSELING [facility] & CHILD [facility] 1.2.840.114 350.1.13.10 4.2.7.2.686 [id number] [facility] 2022-11-10 00:00:00 2022-11-10 00:00:00 Telephone Yolanda Santossheeba Miranda [facility] DIRECTOR OF COUNSELING [facility] CHILD [facility] 1.2840.114 350.1.13.10 4.2.7.2.686 [id number] [facility] 2022-11-09 00:00:00 2022-11-09 00:00:00 Abstract Yolanda Santossheeba Miranda [facility] DIRECTOR OF COUNSELING [facility] CHILD [facility] 1.2840.114 350.1.13.10 4.2.7.2.686 [id number] [facility] 2022-11-08 12:45:00 2022-11-08 13:00:00 Hotel Concierge Visit Lab, Franck Quinnjimmie Bhavya Miranda [facility]N [facility] 1.2840.114 350.1.13.10 4.2.7.2.686 [id number] [facility] 2022-11-08 11:15:00 2022-11-08 12:11:11 Hotel Concierge Visit Ultrasound, Franck Grady [facility] DIRECTOR OF COUNSELING [facility] CHILD [facility] 1.2840.114 350.1.13.10 4.2.7.2.686 [id number] [facility] 2022-11-08 11:15:00 2022-11-08 12:11:11 Outpatient P FRANCK CESAR [facility] [id number] [facility] 2022-11-08 00:00:00 2022-11-08 00:00:00 Case Management Jerrodjimmie Bhavya Miranda [facility] 1.2.840.114 350.1.13.10 4.2.7.2.686 [id number] [facility] 2022-10-27 00:00:00 2022-10-27 00:00:00 Telephone Bhavya Santos [facility] DIRECTOR OF COUNSELING [facility] & CHILD [facility] 1.2.840.114 350.1.13.10 4.2.7.2.686 [id number] [facility] 2022-10-25 08:15:00 2022-10-25 08:19:46 Hotel Concierge Visit Lab, Glynn-[facility] Bhavya Santos [facility] DIRECTOR OF COUNSELING [facility] MATERNAL & CHILD [facility] 1.2840.114 350.1.13.10 4.2.7.2.686 [id number] [facility] 2022-10-25 08:15:00 2022-10-25 08:15:00 Outpatient R BHAVYA SANTOS [facility] [id number] [facility] 2022-10-24 13:45:00 2022-10-24 14:56:09 Outpatient R BHAVYA SANTOS [facility] [id number] [facility] 2022-10-24 13:45:00 2022-10-24 14:56:09 Initial Visit Bhavya Santos [facility] DIRECTOR OF COUNSELING [facility] & CHILD [facility] 1.2840.114 350.1.13.10 4.2.7.2.686 [id number] [facility] 2022-10-24 00:00:00 2022-10-24 00:00:00 Orders Only Doctor Unassigned, Cable [facility] 1.840.114 350.1.13.10 4.2.7.2.686 [id number] [facility] 2020-05-25 12:31:00 2020-05-25 13:44:00 Emergency Nico Garsia [facility] 1.2.840.114 350.1.13.10 4.2.7.2.686 [id number] [facility] 2020-05-25 12:31:00 2020-05-25 12:31:00 Emergency X NICO GARSIA [facility] ERT [id number] [facility] Results Test Description Test Time Test Comments Results Result Co mments Source [facility] Urinalysis w/o Specific [id number] 14:20:00* Test Item Value Reference Range Interpretation Comme nts POCT PH U (test code = 3254) 6 mg/dl 5-8 POCT U LEUK EST (test code = 3263) 2+ Negative - Negative POCT U NIT (test code = 3262) neg Negative - Negati ve POCT U PROT (test code = 3259) trace Negative - Negat tejas POCT U GLU (test code = 3256) neg Negative - Negati ve POCT U KETONE (test code = 3258) 1+ Negative - Neg ative POCT U BLD (test code = 3257) neg Negative - Negati ve [facility] [id number] 14:20:00* Test Item Value Reference Range Interpretation Comme nts POCT PREG (test code = 1605) Positive On board controls acceptable with C Line (test code = 3574) Yes POCT PREG LOT # (test code = 3575) POCT PREG TEST DATE ( test code = 3576) [facility] [id number] 16:10:00* Test Item Value Reference Range Interpretation Comme nts POCT PREG (test code = 1605) Positive On board controls acceptable with C Line (test code = 3574) Yes POCT PREG LOT # (test code = 3575) POCT PREG TEST DATE ( test code = 3576) [facility] [id number] 22:20:00* Test Item Value Reference Range Interpretation Comme nts POCT PREG (test code = 1605) Negative On board controls acceptable with C Line (test code = 3574) Yes POCT PREG LOT # (test code = 3575) POCT PREG TEST DATE ( test code = 3576) [facility] [id number] 22:20:00* Test Item Value Reference Range Interpretation Comme nts POCT PREG (test code = 1605) Negative On board controls acceptable with C Line (test code = 3574) Yes POCT PREG LOT # (test code = 3575) POCT PREG TEST DATE ( test code = 3576) [facility] I[facility]2023-04-30 22:39:16* Test Item Value Reference Range Interpretation Comme nts HBC (test code = 6343415356) Negative HBC Semi-Quantitative (test code = 6130968296) 3.38 [facility] (IGM & IGG)2023-04-30 22:39:16* Test Item Value Reference Range Interpretation Comme nts HBC (test code = 9084340705) Negative HBC Semi-Quantitative (test code = 9308395767) 3.38 [facility] [id number] 22:39:15* Test Item Value Reference Range Interpretation Comme nts HCV Ab (test code = 41070-2) Negative HCV Semi-Quantitative (test code = 11950-7) 0.01 [facility] [id number] 22:39:15* Test Item Value Reference Range Interpretation Comme nts HCV Ab (test code = 35569-1) Negative HCV Semi-Quantitative (test code = 11794-3) 0.01 [facility] Taylor[facility] Cord [id number] 18:36:32* Test Item Value Reference Range Interpretation Comme nts VENOUS BASE EXCESS, CORD (test code = 7962369372) -2.3 mEq/L VENOUS PH, CORD (test code = 0473999700) 7.34 7.25-7.45 VENOUS PC02, CORD (test code = 3603053552) 45 See_Comment [Automated messa ge] The system which generated this result transmitted reference range: 27 - 49 mmHg. The reference range was not used to interpret this result as normal/abnormal. VENOUS PO2, CORD (test code = 4329277013) 21 See_Comment [Automated me ssage] The system which generated this result transmitted reference range: 17 - 41 mmHg. The reference range was not used to interpret this result as normal/abnormal. VENOUS BICARBONATE, CORD (test code = 2651250107) 24 See_Comment [Automated messa ge] The system which generated this result transmitted reference range: 12 - 29 mEq/L. The reference range was not used to interpret this result as normal/abnormal. [facility] [id number] 18:36:32* Test Item Value Reference Range Interpretation Comme nts VENOUS BASE EXCESS, CORD (test code = 0811483629) -2.3 mEq/L VENOUS PH, CORD (test code = 9401252010) 7.34 7.25-7.45 VENOUS PC02, CORD (test code = 5933749066) 45 See_Comment [Automated messa ge] The system which generated this result transmitted reference range: 27 - 49 mmHg. The reference range was not used to interpret this result as normal/abnormal. VENOUS PO2, CORD (test code = 4870794906) 21 See_Comment [Automated me ssage] The system which generated this result transmitted reference range: 17 - 41 mmHg. The reference range was not used to interpret this result as normal/abnormal. VENOUS BICARBONATE, CORD (test code = 9948245876) 24 See_Comment [Automated messa ge] The system which generated this result transmitted reference range: 12 - 29 mEq/L. The reference range was not used to interpret this result as normal/abnormal. [facility] Taylor[facility] Cord [id number] 18:34:46* Test Item Value Reference Range Interpretation Comme nts BASE EXCESS, CORD (test code = 8152155338) -3.0 mEq/L QUES AC PH, CORD (BEAKER) (test code = 0641884248) 7.27 7.18-7.38 PC02, CORD (test code = 9912698313) 56 See_Comment [Automated messa ge] The system which generated this result transmitted reference range: 32 - 66 mmHg. The reference range was not used to interpret this result as normal/abnormal. PO2, CORD (test code = 4909249082) 19 See_Comment [Automated messa ge] The system which generated this result transmitted reference range: 10 - 30 mmHg. The reference range was not used to interpret this result as normal/abnormal. BICARBONATE, CORD (test code = 9886835965) 25 See_Comment [Automated messa ge] The system which generated this result transmitted reference range: 17 - 27 mEq/L. The reference range was not used to interpret this result as normal/abnormal. [facility] [id number] 18:34:46* Test Item Value Reference Range Interpretation Comme nts BASE EXCESS, CORD (test code = 4503607522) -3.0 mEq/L QUES AC PH, CORD (BEAKER) (test code = 6705412683) 7.27 7.18-7.38 PC02, CORD (test code = 9870492217) 56 See_Comment [Automated messa ge] The system which generated this result transmitted reference range: 32 - 66 mmHg. The reference range was not used to interpret this result as normal/abnormal. PO2, CORD (test code = 8285236506) 19 See_Comment [Automated messa ge] The system which generated this result transmitted reference range: 10 - 30 mmHg. The reference range was not used to interpret this result as normal/abnormal. BICARBONATE, CORD (test code = 2703315665) 25 See_Comment [Automated messa ge] The system which generated this result transmitted reference range: 17 - 27 mEq/L. The reference range was not used to interpret this result as normal/abnormal. [facility] ONLY - SYPHILIS IGG/[id number] 14:06:25* Test Item Value Reference Range Interpretation Comme nts Syphilis IgG/IgM (test code = 20723-2) Non-reactive Non-reactive PAT (test code = PAT) Non-reactive - No serologic evidence of T. pallidum infection. Cannot exclude incubating or early syphilis. Submit a second specimen in 2-4 weeks if syphilis is clinically suspected. Equivocal - Further testing to follow. Reactive - Further testing to follow. Lab Interpretation (test code = 85144-9) Normal [facility] ONLY - SYPHILIS IGG/[id number] 14:06:25* Test Item Value Reference Range Interpretation Comme nts Syphilis IgG/IgM (test code = 04313-1) Non-reactive Non-reactive PAT (test code = PAT) Non-reactive - No serologic evidence of T. pallidum infection. Cannot exclude incubating or early syphilis. Submit a second specimen in 2-4 weeks if syphilis is clinically suspected. Equivocal - Further testing to follow. Reactive - Further testing to follow. Lab Interpretation (test code = 35085-2) Normal [facility] Taylor[facility]atitis B Surface [id number] 11:50:37 * Test Item Value Reference Range Interpretation Comme nts HBsAg Semi-Quantitative (huey t code = 5195-3) 0.09 Negative [facility] B Surface [id number] 11:50:37 * Test Item Value Reference Range Interpretation Comme nts HBsAg Semi-Quantitative (huey t code = 5195-3) 0.09 [facility] [id number] 10:04:32* Test Item Value Reference Range Interpretation Comme nts HIV Semi-quantitative (test code = 12254-7) 0.13 Negative PAT (test code = PAT) Non-reactive for HIV-1 antigen and HIV-1/HIV-2 antibodies. ?No laboratory evidence of HIV infection. ?Repeat in 2-4 weeks if acute HIV infection is suspected. [facility] 1/2 AG-AB WITH [id number] 10:04:32* Test Item Value Reference Range Interpretation Comme nts HIV Semi-quantitative (test code = 64239-3) 0.13 Negative PAT (test code = PAT) Non-reactive for HIV-1 antigen and HIV-1/HIV-2 antibodies. ?No laboratory evidence of HIV infection. ?Repeat in 2-4 weeks if acute HIV infection is suspected. [facility] with [id number] 07:17:45* Test Item Value Reference Range Interpretation Comme nts WBC (test code = 6690-2) 12.19 See_Comment H [Automated messa ge] The system which generated this result transmitted reference range: 4.30 - 11.10 10*3/?L. The reference range was not used to interpret this result as normal/abnormal. RBC (test code = 789-8) 3.42 See_Comment L [Automated messa ge] The system which generated this result transmitted reference range: 3.93 - 5.25 10*6/?L. The reference range was not used to interpret this result as normal/abnormal. HGB (test code = 718-7) 8.4 g/dL 11.6-15.0 L HCT (test code = 4544-3) 26.3 % 35.7-45.2 L MCV (test code = 787-2) 76.9 fL 80.6-95.5 L MCH (test code = 785-6) 24.6 pg 25.9-32.8 L MCHC (test code = 786-4) 31.9 g/dL 31.6-35.1 RDW-SD (test code = 06426-0) 44.9 fL 39.0-49.9 RDW-CV (test code = 788-0) 16.0 % 12.0-15.5 H PLT (test code = 777-3) 296 See_Comment [Automated messa ge] The system which generated this result transmitted reference range: 166 - 358 10*3/?L. The reference range was not used to interpret this result as normal/abnormal. MPV (test code = 19063-4) 11.4 fL 9.5-12.9 NRBC/100 WBC (test code = 1651514340) 0.2 See_Comment [Automated [employer] ssage] The system which generated this result transmitted reference range: 0.0 - 10.0 /100 WBCs. The reference range was not used to interpret this result as normal/abnormal. NRBC x10^3 (test code = 1619212581) 0.02 See_Comment [Automated messa ge] The system which generated this result transmitted reference range: 10*3/?L. The reference range was not used to interpret this result as normal/abnormal. GRAN MAT (NEUT) % (test code = 770-8) 68.3 % IMM GRAN % (test code = 3448135910) 0.90 % LYMPH % (test code = 736-9) 19.8 % MONO % (test code = 5905-5) 8.1 % EOS % (test code = 713-8) 2.4 % BASO % (test code = 706-2) 0.5 % GRAN MAT x10^3(ANC) (test code = 9503665103) 8.33 10*3/uL 1.88-7.09 H IMM GRAN x10^3 (test code = 6457286084) 0.11 10*3/uL 0.00-0.06 H LYMPH x10^3 (test code = 731-0) 2.41 10*3/uL 1.32-3.29 MONO x10^3 (test code = 742-7) 0.99 10*3/uL 0.33-0.92 H EOS x10^3 (test code = 711-2) 0.29 10*3/uL 0.03-0.39 BASO x10^3 (test code = 704-7) 0.06 10*3/uL 0.01-0.07 Lab Interpretation (test code = 09037-0) Abnormal [facility] with Amsuwmcjdoqh5448-51-97 07:17:45* Test Item Value Reference Range Interpretation Comme nts WBC (test code = 6690-2) 12.19 See_Comment H [Automated messa ge] The system which generated this result transmitted reference range: 4.30 - 11.10 10*3/?L. The reference range was not used to interpret this result as normal/abnormal. RBC (test code = 789-8) 3.42 See_Comment L [Automated messa ge] The system which generated this result transmitted reference range: 3.93 - 5.25 10*6/?L. The reference range was not used to interpret this result as normal/abnormal. HGB (test code = 718-7) 8.4 g/dL 11.6-15.0 L HCT (test code = 4544-3) 26.3 % 35.7-45.2 L MCV (test code = 787-2) 76.9 fL 80.6-95.5 L MCH (test code = 785-6) 24.6 pg 25.9-32.8 L MCHC (test code = 786-4) 31.9 g/dL 31.6-35.1 RDW-SD (test code = 15699-4) 44.9 fL 39.0-49.9 RDW-CV (test code = 788-0) 16.0 % 12.0-15.5 H PLT (test code = 777-3) 296 See_Comment [Automated messa ge] The system which generated this result transmitted reference range: 166 - 358 10*3/?L. The reference range was not used to interpret this result as normal/abnormal. MPV (test code = 99898-0) 11.4 fL 9.5-12.9 NRBC/100 WBC (test code = 7427893298) 0.2 See_Comment [Automated me ssage] The system which generated this result transmitted reference range: 0.0 - 10.0 /100 WBCs. The reference range was not used to interpret this result as normal/abnormal. NRBC x10^3 (test code = 1759065783) 0.02 See_Comment [Automated messa ge] The system which generated this result transmitted reference range: 10*3/?L. The reference range was not used to interpret this result as normal/abnormal. GRAN MAT (NEUT) % (test code = 770-8) 68.3 % IMM GRAN % (test code = 1952615012) 0.90 % LYMPH % (test code = 736-9) 19.8 % MONO % (test code = 5905-5) 8.1 % EOS % (test code = 713-8) 2.4 % BASO % (test code = 706-2) 0.5 % GRAN MAT x10^3(ANC) (test code = 0128777622) 8.33 10*3/uL 1.88-7.09 H IMM GRAN x10^3 (test code = 2225991667) 0.11 10*3/uL 0.00-0.06 H LYMPH x10^3 (test code = 731-0) 2.41 10*3/uL 1.32-3.29 MONO x10^3 (test code = 742-7) 0.99 10*3/uL 0.33-0.92 H EOS x10^3 (test code = 711-2) 0.29 10*3/uL 0.03-0.39 BASO x10^3 (test code = 704-7) 0.06 10*3/uL 0.01-0.07 Lab Interpretation (test code = 66816-9) [facility] [id number] 07:06:00* Test Item Value Reference Range Interpretation Comme nts ABO & RH (test code = 20) A POSITIVE IAT (test code = 1185) Negative [facility] - ONCE Kcimatl2064-16-82 07:06:00* Test Item Value Reference Range Interpretation Comme nts ABO & RH (test code = 20) A POSITIVE IAT (test code = 1185) Negative [facility] URINALYSIS W SPECIFIC [id number] 14:54:00* Test Item Value Reference Range Interpretation Comme nts POCT U SP GRAV (test code = 3255) . 1.005-1.025 POCT PH U (test code = 3254) . 5-8 POCT U LEUK EST (test code = 3263) . Negative - N egative POCT U NIT (test code = 3262) . Negative - Negati ve POCT U PROT (test code = 3259) trace Negative - Negat tejas POCT U GLU (test code = 3256) neg Negative - Negati ve POCT U KETONE (test code = 3258) . Negative - Neg ative POCT U UROBILI (test code = 3260) . 0.2-1 POCT U BILI (test code = 3261) . Negative - Negat tejas POCT U BLD (test code = 3257) . Negative - Negati ve POCT U COLOR (test code = 3266) . POCT U APPEAR (test code = 3267) . [facility] URINALYSIS W SPECIFIC [id number] 14:54:00* Test Item Value Reference Range Interpretation Comme nts POCT U SP GRAV (test code = 3255) . 1.005-1.025 POCT PH U (test code = 3254) . 5-8 POCT U LEUK EST (test code = 3263) . Negative - N egative POCT U NIT (test code = 3262) . Negative - Negati ve POCT U PROT (test code = 3259) trace Negative - Negat tejas POCT U GLU (test code = 3256) neg Negative - Negati ve POCT U KETONE (test code = 3258) . Negative - Neg ative POCT U UROBILI (test code = 3260) . 0.2-1 POCT U BILI (test code = 3261) . Negative - Negat tejas POCT U BLD (test code = 3257) . Negative - Negati ve POCT U COLOR (test code = 3266) . POCT U APPEAR (test code = 3267) . [facility] URINALYSIS W SPECIFIC [id number] 14:54:00* Test Item Value Reference Range Interpretation Comme nts POCT U SP GRAV (test code = 3255) . 1.005-1.025 POCT PH U (test code = 3254) . 5-8 POCT U LEUK EST (test code = 3263) . Negative - N egative POCT U NIT (test code = 3262) . Negative - Negati ve POCT U PROT (test code = 3259) trace Negative - Negat tejas POCT U GLU (test code = 3256) neg Negative - Negati ve POCT U KETONE (test code = 3258) . Negative - Neg ative POCT U UROBILI (test code = 3260) . 0.2-1 POCT U BILI (test code = 3261) . Negative - Negat tejas POCT U BLD (test code = 3257) . Negative - Negati ve POCT U COLOR (test code = 3266) . POCT U APPEAR (test code = 3267) . [facility] URINALYSIS W SPECIFIC [id number] 14:54:00* Test Item Value Reference Range Interpretation Comme nts POCT U SP GRAV (test code = 3255) . 1.005-1.025 POCT PH U (test code = 3254) . 5-8 POCT U LEUK EST (test code = 3263) . Negative - N egative POCT U NIT (test code = 3262) . Negative - Negati ve POCT U PROT (test code = 3259) trace Negative - Negat tejas POCT U GLU (test code = 3256) neg Negative - Negati ve POCT U KETONE (test code = 3258) . Negative - Neg ative POCT U UROBILI (test code = 3260) . 0.2-1 POCT U BILI (test code = 3261) . Negative - Negat tejas POCT U BLD (test code = 3257) . Negative - Negati ve POCT U COLOR (test code = 3266) . POCT U APPEAR (test code = 3267) . [facility] URINALYSIS W SPECIFIC [id number] 13:50:00* Test Item Value Reference Range Interpretation Comme nts POCT U SP GRAV (test code = 3255) . 1.005-1.025 POCT PH U (test code = 3254) 6 mg/dl 5-8 POCT U LEUK EST (test code = 3263) 2+ Negative - Negative POCT U NIT (test code = 3262) neg Negative - Negati ve POCT U PROT (test code = 3259) trace Negative - Negat tejas POCT U GLU (test code = 3256) neg Negative - Negati ve POCT U KETONE (test code = 3258) neg Negative - Neg ative POCT U UROBILI (test code = 3260) . 0.2-1 POCT U BILI (test code = 3261) . Negative - Negat tejas POCT U BLD (test code = 3257) neg Negative - Negati ve POCT U COLOR (test code = 3266) . POCT U APPEAR (test code = 3267) . [facility] URINALYSIS W SPECIFIC [id number] 13:50:00* Test Item Value Reference Range Interpretation Comme nts POCT U SP GRAV (test code = 3255) . 1.005-1.025 POCT PH U (test code = 3254) 6 mg/dl 5-8 POCT U LEUK EST (test code = 3263) 2+ Negative - Negative POCT U NIT (test code = 3262) neg Negative - Negati ve POCT U PROT (test code = 3259) trace Negative - Negat tejas POCT U GLU (test code = 3256) neg Negative - Negati ve POCT U KETONE (test code = 3258) neg Negative - Neg ative POCT U UROBILI (test code = 3260) . 0.2-1 POCT U BILI (test code = 3261) . Negative - Negat tejas POCT U BLD (test code = 3257) neg Negative - Negati ve POCT U COLOR (test code = 3266) . POCT U APPEAR (test code = 3267) . [facility] URINALYSIS W SPECIFIC [id number] 13:50:00* Test Item Value Reference Range Interpretation Comme nts POCT U SP GRAV (test code = 3255) . 1.005-1.025 POCT PH U (test code = 3254) 6 mg/dl 5-8 POCT U LEUK EST (test code = 3263) 2+ Negative - Negative POCT U NIT (test code = 3262) neg Negative - Negati ve POCT U PROT (test code = 3259) trace Negative - Negat tejas POCT U GLU (test code = 3256) neg Negative - Negati ve POCT U KETONE (test code = 3258) neg Negative - Neg ative POCT U UROBILI (test code = 3260) . 0.2-1 POCT U BILI (test code = 3261) . Negative - Negat tejas POCT U BLD (test code = 3257) neg Negative - Negati ve POCT U COLOR (test code = 3266) . POCT U APPEAR (test code = 3267) . [facility] URINALYSIS W SPECIFIC [id number] 13:50:00* Test Item Value Reference Range Interpretation Comme nts POCT U SP GRAV (test code = 3255) . 1.005-1.025 POCT PH U (test code = 3254) 6 mg/dl 5-8 POCT U LEUK EST (test code = 3263) 2+ Negative - Negative POCT U NIT (test code = 3262) neg Negative - Negati ve POCT U PROT (test code = 3259) trace Negative - Negat tejas POCT U GLU (test code = 3256) neg Negative - Negati ve POCT U KETONE (test code = 3258) neg Negative - Neg ative POCT U UROBILI (test code = 3260) . 0.2-1 POCT U BILI (test code = 3261) . Negative - Negat tejas POCT U BLD (test code = 3257) neg Negative - Negati ve POCT U COLOR (test code = 3266) . POCT U APPEAR (test code = 3267) . [facility] URINALYSIS W SPECIFIC [id number] 13:50:00* Test Item Value Reference Range Interpretation Comme nts POCT U SP GRAV (test code = 3255) . 1.005-1.025 POCT PH U (test code = 3254) 6 mg/dl 5-8 POCT U LEUK EST (test code = 3263) 2+ Negative - Negative POCT U NIT (test code = 3262) neg Negative - Negati ve POCT U PROT (test code = 3259) trace Negative - Negat tejas POCT U GLU (test code = 3256) neg Negative - Negati ve POCT U KETONE (test code = 3258) neg Negative - Neg ative POCT U UROBILI (test code = 3260) . 0.2-1 POCT U BILI (test code = 3261) . Negative - Negat tejas POCT U BLD (test code = 3257) neg Negative - Negati ve POCT U COLOR (test code = 3266) . POCT U APPEAR (test code = 3267) . [facility] URINALYSIS W SPECIFIC [id number] 13:18:00* Test Item Value Reference Range Interpretation Comme nts POCT U SP GRAV (test code = 3255) . 1.005-1.025 POCT PH U (test code = 3254) . 5-8 POCT U LEUK EST (test code = 3263) . Negative - N egative POCT U NIT (test code = 3262) . Negative - Negati ve POCT U PROT (test code = 3259) trace Negative - Negat tejas POCT U GLU (test code = 3256) neg Negative - Negati ve POCT U KETONE (test code = 3258) . Negative - Neg ative POCT U UROBILI (test code = 3260) . 0.2-1 POCT U BILI (test code = 3261) . Negative - Negat tejas POCT U BLD (test code = 3257) . Negative - Negati ve POCT U COLOR (test code = 3266) . POCT U APPEAR (test code = 3267) . [facility] URINALYSIS W SPECIFIC [id number] 13:16:00* Test Item Value Reference Range Interpretation Comme nts POCT U SP GRAV (test code = 3255) . 1.005-1.025 POCT PH U (test code = 3254) . 5-8 POCT U LEUK EST (test code = 3263) . Negative - Negative POCT U NIT (test code = 3262) . Negative - Negati ve POCT U PROT (test code = 3259) negative Negative - Negat tejas POCT U GLU (test code = 3256) normal Negative - Negati ve POCT U KETONE (test code = 3258) . Negative - Neg ative POCT U UROBILI (test code = 3260) . 0.2-1 POCT U BILI (test code = 3261) . Negative - Negat tejas POCT U BLD (test code = 3257) . Negative - Negati ve POCT U COLOR (test code = 3266) . POCT U APPEAR (test code = 3267) . [facility] URINALYSIS W SPECIFIC [id number] 13:16:00* Test Item Value Reference Range Interpretation Comme nts POCT U SP GRAV (test code = 3255) . 1.005-1.025 POCT PH U (test code = 3254) . 5-8 POCT U LEUK EST (test code = 3263) . Negative - Negative POCT U NIT (test code = 3262) . Negative - Negati ve POCT U PROT (test code = 3259) negative Negative - Negat tejas POCT U GLU (test code = 3256) normal Negative - Negati ve POCT U KETONE (test code = 3258) . Negative - Neg ative POCT U UROBILI (test code = 3260) . 0.2-1 POCT U BILI (test code = 3261) . Negative - Negat tejas POCT U BLD (test code = 3257) . Negative - Negati ve POCT U COLOR (test code = 3266) . POCT U APPEAR (test code = 3267) . [facility] URINALYSIS W SPECIFIC [id number] 13:25:00* Test Item Value Reference Range Interpretation Comme nts POCT U SP GRAV (test code = 3255) . 1.005-1.025 POCT PH U (test code = 3254) . 5-8 POCT U LEUK EST (test code = 3263) . Negative - N egative POCT U NIT (test code = 3262) . Negative - Negati ve POCT U PROT (test code = 3259) trace Negative - Negat tejas POCT U GLU (test code = 3256) neg Negative - Negati ve POCT U KETONE (test code = 3258) . Negative - Neg ative POCT U UROBILI (test code = 3260) . 0.2-1 POCT U BILI (test code = 3261) . Negative - Negat tejas POCT U BLD (test code = 3257) . Negative - Negati ve POCT U COLOR (test code = 3266) . POCT U APPEAR (test code = 3267) . [facility] URINALYSIS W SPECIFIC [id number] 13:14:00* Test Item Value Reference Range Interpretation Comme nts POCT U SP GRAV (test code = 3255) . 1.005-1.025 POCT PH U (test code = 3254) . 5-8 POCT U LEUK EST (test code = 3263) . Negative - N egative POCT U NIT (test code = 3262) . Negative - Negati ve POCT U PROT (test code = 3259) trace Negative - Negat tejas POCT U GLU (test code = 3256) neg Negative - Negati ve POCT U KETONE (test code = 3258) . Negative - Neg ative POCT U UROBILI (test code = 3260) . 0.2-1 POCT U BILI (test code = 3261) . Negative - Negat tejas POCT U BLD (test code = 3257) . Negative - Negati ve POCT U COLOR (test code = 3266) . POCT U APPEAR (test code = 3267) . [facility] URINALYSIS W SPECIFIC [id number] 13:14:00* Test Item Value Reference Range Interpretation Comme nts POCT U SP GRAV (test code = 3255) . 1.005-1.025 POCT PH U (test code = 3254) . 5-8 POCT U LEUK EST (test code = 3263) . Negative - N egative POCT U NIT (test code = 3262) . Negative - Negati ve POCT U PROT (test code = 3259) trace Negative - Negat tejas POCT U GLU (test code = 3256) neg Negative - Negati ve POCT U KETONE (test code = 3258) . Negative - Neg ative POCT U UROBILI (test code = 3260) . 0.2-1 POCT U BILI (test code = 3261) . Negative - Negat tejas POCT U BLD (test code = 3257) . Negative - Negati ve POCT U COLOR (test code = 3266) . POCT U APPEAR (test code = 3267) . [facility] URINALYSIS W SPECIFIC [id number] 13:14:00* Test Item Value Reference Range Interpretation Comme nts POCT U SP GRAV (test code = 3255) . 1.005-1.025 POCT PH U (test code = 3254) . 5-8 POCT U LEUK EST (test code = 3263) . Negative - N egative POCT U NIT (test code = 3262) . Negative - Negati ve POCT U PROT (test code = 3259) trace Negative - Negat tejas POCT U GLU (test code = 3256) neg Negative - Negati ve POCT U KETONE (test code = 3258) . Negative - Neg ative POCT U UROBILI (test code = 3260) . 0.2-1 POCT U BILI (test code = 3261) . Negative - Negat tejas POCT U BLD (test code = 3257) . Negative - Negati ve POCT U COLOR (test code = 3266) . POCT U APPEAR (test code = 3267) . [facility] URINALYSIS W SPECIFIC [id number] 17:53:00* Test Item Value Reference Range Interpretation Comme nts POCT U SP GRAV (test code = 3255) . 1.005-1.025 POCT PH U (test code = 3254) . 5-8 POCT U LEUK EST (test code = 3263) . Negative - N egative POCT U NIT (test code = 3262) . Negative - Negati ve POCT U PROT (test code = 3259) TRACE Negative - Negat tejas POCT U GLU (test code = 3256) NEG Negative - Negati ve POCT U KETONE (test code = 3258) . Negative - Neg ative POCT U UROBILI (test code = 3260) . 0.2-1 POCT U BILI (test code = 3261) . Negative - Negat tejas POCT U BLD (test code = 3257) . Negative - Negati ve POCT U COLOR (test code = 3266) . POCT U APPEAR (test code = 3267) . [facility] [id number] 14:39:04* Test Item Value Reference Range Interpretation Comme nts Syphilis IgG/IgM (test code = 93235-7) Non-reactive Non-reactive PAT (test code = PAT) Non-reactive - No serologic evidence of T. pallidum infection. Cannot exclude incubating or early syphilis. Submit a second specimen in 2-4 weeks if syphilis is clinically suspected. Equivocal - Further testing to follow. Reactive - Further testing to follow. Lab Interpretation (test code = 01902-7) Normal [facility]-AB WITH [id number] 07:44:13* Test Item Value Reference Range Interpretation Comme nts HIV Semi-quantitative (test code = 56037-0) 0.09 Negative PAT (test code = PAT) Non-reactive for HIV-1 antigen and HIV-1/HIV-2 antibodies. ?No laboratory evidence of HIV infection. ?Repeat in 2-4 weeks if acute HIV infection is suspected. [facility] [id number] 06:08:23 * Test Item Value Reference Range Interpretation Comme nts HBsAg Semi-Quantitative (huey t code = 5195-3) 0.06 Negative [facility] WITH [id number] 04:59:33* Test Item Value Reference Range Interpretation Comme nts WBC (test code = 6690-2) 10.68 See_Comment [Automated [employer]] The system which generated this result transmitted reference range: 4.30 - 11.10 10*3/?L. The reference range was not used to interpret this result as normal/abnormal. RBC (test code = 789-8) 4.38 See_Comment [Automated [employer]] The system which generated this result transmitted reference range: 3.93 - 5.25 10*6/?L. The reference range was not used to interpret this result as normal/abnormal. HGB (test code = 718-7) 12.4 g/dL 11.6-15.0 HCT (test code = 4544-3) 37.2 % 35.7-45.2 MCV (test code = 787-2) 84.9 fL 80.6-95.5 MCH (test code = 785-6) 28.3 pg 25.9-32.8 MCHC (test code = 786-4) 33.3 g/dL 31.6-35.1 RDW-SD (test code = 42089-3) 45.3 fL 39.0-49.9 RDW-CV (test code = 788-0) 14.9 % 12.0-15.5 PLT (test code = 777-3) 350 See_Comment [Automated messa ge] The system which generated this result transmitted reference range: 166 - 358 10*3/?L. The reference range was not used to interpret this result as normal/abnormal. MPV (test code = 23108-8) 11.8 fL 9.5-12.9 NRBC/100 WBC (test code = 8941155765) 0.0 See_Comment [Automated [employer] ssage] The system which generated this result transmitted reference range: 0.0 - 10.0 /100 WBCs. The reference range was not used to interpret this result as normal/abnormal. NRBC x10^3 (test code = 6277871372) See_Comment [Automated messa ge] The system which generated this result transmitted reference range: 10*3/?L. The reference range was not used to interpret this result as normal/abnormal. GRAN MAT (NEUT) % (test code = 770-8) 72.2 % IMM GRAN % (test code = 6273824824) 0.20 % LYMPH % (test code = 736-9) 19.4 % MONO % (test code = 5905-5) 5.7 % EOS % (test code = 713-8) 1.9 % BASO % (test code = 706-2) 0.6 % GRAN MAT x10^3(ANC) (test code = 8884403161) 7.72 10*3/uL 1.88-7.09 H IMM GRAN x10^3 (test code = 3036261569) 0.00-0.06 LYMPH x10^3 (test code = 731-0) 2.07 10*3/uL 1.32-3.29 MONO x10^3 (test code = 742-7) 0.61 10*3/uL 0.33-0.92 EOS x10^3 (test code = 711-2) 0.20 10*3/uL 0.03-0.39 BASO x10^3 (test code = 704-7) 0.06 10*3/uL 0.01-0.07 Lab Interpretation (test code = 69329-2) Abnormal [facility] W/O SPECIFIC [id number] 21:13:00* Test Item Value Reference Range Interpretation Comme nts POCT PH U (test code = 3254) 6 mg/dl 5-8 POCT U LEUK EST (test code = 3263) 1+ Negative - Negative POCT U NIT (test code = 3262) Neg Negative - Negati ve POCT U PROT (test code = 3259) Trace Negative - Negat tejas POCT U GLU (test code = 3256) Neg Negative - Negati ve POCT U KETONE (test code = 3258) None Negative - Neg ative POCT U BLD (test code = 3257) Neg Negative - Negati ve [facility] [id number] 21:12:00* Test Item Value Reference Range Interpretation Comme nts POCT PREG (test code = 1605) Positive On board controls acceptable with C Line (test code = 3574) Yes POCT PREG LOT # (test code = 3575) POCT PREG TEST DATE ( test code = 3576) [facility], BLOOD [id number] 19:59:00 * Test Item Value Reference Range Interpretation Comme nts ABO & RH (test code = 20) A POSITIVE IAT (test code = 1185) Negative [facility] Notes Date/Time Note Provider Source 2024-03-11 08:08:32 Called patient, notified patient positive for UTI. Educated patient on antibiotics, good perineal hygiene, and increasing fluids. Pt verbalized understanding. Geneva Carrillo LVN 03/11/2024 8:08 AM Geneva Carrillo LVN [facility] 2024-03-10 16:47:54 Please notify the patient she is still positive for gbs uti, please advise her to complete her meds as prescribed, increase fluid intake, practice good perineal hygiene MAYURI Moise 03/10/2024 4:49 PM [facility] 2024-02-11 10:45:22 Patient informed of results and new orders, verbalized understanding. [facility] 2024-02-11 07:41:02 Please notify the patient of UTI, meds have been sent to the pharmacy. Please advise the patient on good perineal hygiene, drinking plenty of water, and completing the entire course of treatment. MAYURI Moise 02/11/2024 7:41 AM [facility] 2024-02-07 09:00:00 Addended by: BHAVYA RIZO on: 02/07/2024 11:09 AM Modules accepted: Orders [facility] 2023-07-09 16:18:33 Pt notified letter was sent via [employer] or can be picked up in clinic. Pt has return to work letter dated for 06/20/2023 from 6 week pp visit. Pt verbalized understanding. ITZEL LEE RN 07/09/2023 4:20 PM [facility] 2023-07-09 15:06:14 Attempt#2. Called, no answer. Left VM. ITZEL LEE RN 07/09/2023 3:06 PM [facility] 2023-07-09 13:08:54 Attempt#1. Called, no answer. Left VM. ITZEL LEE RN 07/09/2023 1:09 PM [facility] 2023-07-09 12:53:46 Zbigniew Murrieta is a 27 year old female Patient called to ask for return to work letter with updated date. Please contact pt at [phone] (home) [facility] Letty Rodriguez [facility] 2023-07-06 15:43:30 Patient informed return to work letter sent to [facility], verbalized understanding. [facility] 2023-07-05 11:10:25 Zbigniew Murrieta is a 27 year old female Patient asking for a returned to work letter. 6 week PP on 06/20/23 Please contact pt at [phone] (home) [facility] Letty Rodriguez [facility] 2023-01-20 21:33:51 Formatting of this n ote might be different from the original. Pt given printed and verbal discharge instructions regarding flu like sypmptoms, encouraged hydration, Discussed ibuprofen and to take with food to avoid GI distress. Pt verbalized understanding of instructions, pt awake alert oriented, resp reg unlabored, skin w/d, color appropriate for race, moves all ext well,pt encouraged to follow up with pcp. Advised to seek medical attention for new/prolonged/worsening of symptoms, Symptoms unchanged Awake, alert oriented, resp reg unlabored, skin w/d, pt leaving amb with steady gait, in no apparent distress, Otilia Palacios RN [facility] 2023-01-20 20:06:20 Formatting of this n ote might be different from the original. Pt arrived ambulatory wanting a covid test. Pt states she started having congestion today. Pt is 5.5 months Fannie Ramires RN [facility] 2022-12-15 16:31:53 Formatting of this n ote might be different from the original. Called pt, notified or providers recommendations and educated pt on need for cervical lengths. Pt declined. Provider aware. Verbalized understanding and education given. Debra Matta RN 12/15/22 4:32 PM Debra Matta RN [facility] 2022-12-15 16:00:46 Formatting of this n ote might be different from the original. Although the patient was educated on her last visit, please advise her that per the ultrasound report it recommended that she has weekly follow up for cervical lengths. If she desires please provide her with the usg dept number so she can schedule MAYURI Moise 12/15/2022 4:03 PM [facility]
[2024-03-31] MEDS ORDERED: LEVALBUTEROL 1.25 MG/3 ML NEB ONE ×2 (05:11→06:41)
[2024-03-31] MEDS ORDERED: METHYLPREDNISOLONE 125 MG INJ ONE (05:11)
[2024-03-31] MEDS ORDERED: DIPHENHYDRAMINE 25 MG TAB/CAP ONE (05:11)
--- NOTE | 2024-03-31 06:08 | RAD REPORT ---
CLINICAL HISTORY: Shield, SOB. COMPARISON: None. TECHNIQUE: XR CHEST 1 VIEW 03/31/2024 4:49 AM [facility] FINDINGS: Cardiac silhouette is normal in size. Lungs are clear without consolidation, atelectasis, mass or lu ma. There is no pleural effusion. There is no pneumothorax. There are no acute osseous findings. IMPRESSION: Clear lungs. Electronically signed by: Chuck Bueno MD 03/31/2024 05:59 AM [facility] RP Due to temporary technical issues with the PACS/QR Wild reporting system, reports are being gilbert d by the in-house radiologist without review as a courtesy to ensure prompt reporting the interpreting radiologist is fully responsible for the content of the report. Transcribed Date/Time: 03/31/2024 6:08 AM
--- NOTE | 2024-03-31 06:55 | ER ---
Nurse's Notes [facility] Name: Farheen Murrieta Age: 28 yrs Sex: Female : 1995 Arrival Date: 03/31/2024 Time: 04:32 Bed 18 Private MD: Diagnosis: Wheezing Presentation: 03/31 04:44 Chief complaint: Patient states: difficulty breathing. Coronavirus screen: At this kj2 time, the client does not indicate any symptoms associated with coronavirus-19. Ebola Screen: No symptoms or risks identified at this time. Initial Sepsis Screen: Does the patient meet any 2 criteria? No. Patient's initial sepsis screen is negative. Does the patient have a suspected source of infection? No. Patient's initial sepsis screen is negative. Risk Assessment: Do you want to hurt yourself or someone else? Patient reports no desire to harm self or others. Onset of symptoms was March 30, 2024. 04:44 Method Of Arrival: Ambulatory kj2 04:44 Acuity: JOHN 3 kj2 Triage Assessment: 04:48 General: Appears in no apparent distress. Behavior is calm, cooperative. Pain: Denies kj2 pain. Neuro: Level of Consciousness is awake, alert, obeys commands, Oriented to person, place, time, situation. Cardiovascular: Patient's skin is warm and dry. Respiratory: Reports shortness of breath at rest on exertion since yesterday Airway is patent Respiratory effort is unlabored, Onset: The symptoms/episode began/occurred yesterday, the patient has mild shortness of breath. GI: No signs and/or symptoms were reported involving the gastrointestinal system. : No signs and/or symptoms were reported regarding the genitourinary system. 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 - Infectious Disease History:: Denies. - Social history:: Smoking status: Patient denies any tobacco usage or history of. - Family history:: not pertinent. - Hospitalizations: : No recent hospitalization is reported. Screenin:50 [facility] ED Fall Risk Assessment (Adult) History of falling in the last 3 months, kj2 including since admission No falls in past 3 months (0 pts) Confusion or Disorientation No (0 pts) Intoxicated or Sedated No (0 pts) Impaired Gait No (0 pts) Mobility Assist Device Used No (0 pt) Altered Elimination No (0 pt) Score/Fall Risk Level 0 - 2 = Low Risk Maintained a safe environment, Hourly rounding (assess needs \T\ fall precautionary measures) done. Abuse screen: Denies threats or abuse. Denies injuries from another. Nutritional screening: No deficits noted. Tuberculosis screening: No symptoms or risk factors identified. Assessment: 04:51 General: see triage assessment. Respiratory: Airway Respiratory effort is unlabored. kj2 GI: No signs and/or symptoms were reported involving the gastrointestinal system. : No signs and/or symptoms were reported regarding the genitourinary system. 05:44 Reassessment: Patient appears in no apparent distress at this time. Patient and/or kj2 family updated on plan of care and expected duration. Pain level reassessed. Patient is alert, oriented x 3, equal unlabored respirations, skin warm/dry/pink. 05:48 Reassessment: patient verbalized . patient also verbalized wanting to take kj2 xray. 06:43 Reassessment: Patient appears in no apparent distress at this time. Patient and/or kj2 family updated on plan of care and expected duration. Pain level reassessed. Patient is alert, oriented x 3, equal unlabored respirations, skin warm/dry/pink. 06:43 Respiratory: Breath sounds with wheezes bilaterally. kj2 06:44 Cardiovascular: Rhythm is regular. kj2 Vital Signs: 04:44 BP 108 / 62; Pulse 70; Resp 18; Temp 98.3; Pulse Ox 100% on R/A; Weight 61.23 kg; kj2 Height 4 ft. 11 in. ; 05:44 BP 111 / 64; Pulse 76; Pulse Ox 98% on R/A; kj2 06:43 BP 108 / 56; Pulse 72; Resp 20; Pulse Ox 97% on R/A; kj2 04:44 Body Mass Index 27.27 (61.23 kg, 149.86 cm) kj2 ED Course: 04:36 Patient arrived in ED. gm2 04:36 Ike Daniels MD is Attending Physician. rn 04:38 Mita Jane RN is Primary Nurse. kj2 04:48 Triage completed. kj2 04:50 Patient has correct armband on for positive identification. Bed in low position. Call kj2 light in reach. Provided Education on: call light. 04:50 Arm band placed on Patient placed in an exam room, on a stretcher. kj2 05:26 XRAY Chest (1 view) In Process Unspecified. EDMS 05:47 No provider procedures requiring assistance completed. kj2 07:10 Patient did not have IV access during this emergency room visit. kj2 Administered Medications: 05:18 Drug: MethylPREDNISolone Sodium Succinate IM 125 mg IM once Route: IM; Site: left kj2 deltoid; 05:32 Follow up: Response: No adverse reaction kj2 05:18 Drug: diphenhydrAMINE PO 25 mg PO once Route: PO; kj2 05:32 Follow up: Response: No adverse reaction kj2 05:19 Drug: Levalbuterol Inhalation 1.25 mg Inhalation once Route: Inhalation; kj2 05:32 Follow up: Response: No adverse reaction kj2 06:43 Drug: Levalbuterol Inhalation 1.25 mg Inhalation once Route: Inhalation; kj2 07:10 Follow up: Response: No adverse reaction kj2 Medication: 05:46 VIS not applicable for this client. kj2 Outcome: 06:54 Discharge ordered by . rn 07:09 Discharged to home ambulatory, kj2 07:09 Condition: stable 07:09 Discharge instructions given to patient, Instructed on discharge instructions, follow up and referral plans. medication usage, Demonstrated understanding of instructions, Prescriptions given X 1, 07:11 Patient left the ED. kj2 Signatures: Dispatcher [employer] EDMS Ike Daniels MD MD rn Mitchell, Ginger 2 Mita Jane RN RN kj2
--- NOTE | 2024-03-31 06:55 | EDPHYS ---
Physician Documentation [facility] Name: Farheen Murrieta Age: 28 yrs Sex: Female : 1995 Arrival Date: 03/31/2024 Time: 04:32 Bed 18 Private MD: ED Physician Ike Daniels HPI: 03/31 06:37 This 28 yrs old Female presents to ER via Ambulatory with complaints of rn Breathing Difficulty. 06:37 The patient has shortness of breath at rest. Onset: The symptoms/episode began/occurred rn last night. Duration: The symptoms are continuous. The patient's shortness of breath has no apparent modifying factors. Severity of symptoms: At their worst the symptoms were mild in the emergency department the symptoms are unchanged. The patient has experienced a previous episode. Patient reports was around her mother's cats yesterday, when got home started to have wheezing and low short of breath. States this has happened before. Denies smoking or asthma. No rash. No difficulty swallowing. No other exposure. Does not feel ill. Denies cough. Reports she is 15 weeks . 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 - Infectious Disease History:: Denies. - Social history:: Smoking status: Patient denies any tobacco usage or history of. - Family history:: not pertinent. - Hospitalizations: : No recent hospitalization is reported. ROS: 06:37 Constitutional: Negative for fever, chills, and weight loss, ENT: Negative for injury, rn pain, and discharge, Cardiovascular: Negative for chest pain, palpitations, and edema, Respiratory: Positive for wheezing, negative for cough Abdomen/GI: Negative for abdominal pain, nausea, vomiting, diarrhea, and constipation, : Negative for injury, bleeding, discharge, and swelling, MS/Extremity: Negative for injury and deformity, Skin: Negative for injury, rash, and discoloration, Neuro: Negative for headache, weakness, numbness, tingling, and seizure, Exam: 06:37 Constitutional: This is a well developed, well nourished patient who is awake, alert, rn and in no acute distress. ENT: No stridor Cardiovascular: Regular rate and rhythm. No pulse deficits. Respiratory: Mild tachypnea, expiratory wheezing noted. No retractions. Skin: No rash or urticaria Vital Signs: 04:44 BP 108 / 62; Pulse 70; Resp 18; Temp 98.3; Pulse Ox 100% on R/A; Weight 61.23 kg; kj2 Height 4 ft. 11 in. ; 05:44 BP 111 / 64; Pulse 76; Pulse Ox 98% on R/A; kj2 06:43 BP 108 / 56; Pulse 72; Resp 20; Pulse Ox 97% on R/A; kj2 04:44 Body Mass Index 27.27 (61.23 kg, 149.86 cm) kj2 MDM: 04:36 Medical Screening Exam initiated rn 06:53 Differential diagnosis: Anxiety Reaction asthma, pneumonia, Psychogenic Wheezing, rn reactive airway disease, allergic reaction to pet dander. Data reviewed: vital signs, nurses notes, radiologic studies, plain films, and as a result, I will discharge patient. Counseling: I had a detailed discussion with the patient and/or guardian regarding the historical points, exam findings, and any diagnostic results supporting the discharge/admit diagnosis, radiology results, the need for outpatient follow up, to return to the emergency department if symptoms worsen or persist or if there are any questions or concerns that arise at home. Special discussion: I discussed with the patient/guardian in detail that at this point there is no indication for admission to the hospital. It is understood, however, that if the symptoms persist or worsen the patient needs to return immediately for re-evaluation. ED course: Patient improved after steroids and breathing treatments. Will discharge home with budesonide as likely reactive airway disease secondary to pet dander. Chest x-ray images negative for pneumonia per my interpretation. Return precautions given and understood.. 03/31 04:49 Order name: XRAY Chest (1 view) rn Administered Medications: 05:18 Drug: MethylPREDNISolone Sodium Succinate IM 125 mg IM once Route: IM; Site: left kj2 deltoid; 05:32 Follow up: Response: No adverse reaction kj2 05:18 Drug: diphenhydrAMINE PO 25 mg PO once Route: PO; kj2 05:32 Follow up: Response: No adverse reaction kj2 05:19 Drug: Levalbuterol Inhalation 1.25 mg Inhalation once Route: Inhalation; kj2 05:32 Follow up: Response: No adverse reaction kj2 06:43 Drug: Levalbuterol Inhalation 1.25 mg Inhalation once Route: Inhalation; kj2 07:10 Follow up: Response: No adverse reaction kj2 Disposition Summary: 03/31/24 06:54 Discharge Ordered Notes: Location: Home rn Problem: new rn Symptoms: have improved rn Condition: Stable rn Diagnosis - Wheezing rn Followup: rn - With: Private Physician - When: As needed - Reason: Recheck today's complaints, Re-evaluation by your physician Discharge Instructions: - Discharge Summary Sheet rn - Allergies, Adult rn - Shortness of Breath, Adult rn Forms: - Medication Reconciliation Form rn - Antibiotic furniture mechanic - Prescription Opioid Use rn - Patient Portal Instructions rn - Leadership Thank You Letter rn Prescriptions: - budesonide 90 mcg/actuation Inhalation Aerosol Powder, Breath Activated - administer 2 inhalation INHALATION route 2 times per day As needed; 1 unit; rn Refills: 0, Product Selection Permitted Signatures: Dispatcher [employer] EDMS Ike Daniels MD MD rn Jordan, Krystal, RN RN kj2 Corrections: (The following items were deleted from the chart) 06:39 06:37 Constitutional: Negative for fever, chills, and weight loss, Cardiovascular: rn Negative for chest pain, palpitations, and edema, Respiratory: Positive for wheezing, negative for cough Abdomen/GI: Negative for abdominal pain, nausea, vomiting, diarrhea, and constipation, : Negative for injury, bleeding, discharge, and swelling, MS/Extremity: Negative for injury and deformity, Neuro: Negative for headache, weakness, numbness, tingling, and seizure, rn
[2024-03-31 07:15] VITALS: TEMP 98.3
[2024-03-31 07:17] VITALS: BP 108/56; O2SAT 97
== END 2024-03-31 07:11 | disposition home or self-care (01) ==
LOC: ER 04:32
DX: R06.2 Wheezing (principal)
CPT/HCPCS: 71045; 96372; 99284; J2919; J7614